=== PATIENT | female | born 1950 | race Caucasian/White ===

== ENCOUNTER 2017-07-11 13:24 | Emergency (ER) | payer MEDICARE, BC ==
[2017-07-11 13:50] VITALS: TEMP 96.6
--- NOTE | 2017-07-11 15:32 | ED.PDOC ---
History of Present Illness - General Chief Complaint: Respiratory Problem Stated Complaint: shortness of breath Time Seen by Provider: 07/11/17 15:31 Source: patient, RN notes reviewed, Vital Signs reviewed Additional Information: Pt reports some recent cough and difficulty breathing. She denies recent fever. - History of Present Illness Timing/Duration: other - over the past 24 hours Severity: mild Possible Cause: occasional episodes Improving Factors: nothing Worsening Factors: nothing Associated Symptoms: cough, shortness of breath Allergies/Adverse Reactions: Allergies Doxycycline Allergy (Verified 07/11/17 13:53) Penicillins Allergy (Verified 07/11/17 13:53) Home Medications: Ambulatory Orders Albuterol Inhaler [Ventolin Hfa Inhaler] 2 puff INH QID PRN #1 inh 07/11/17 predniSONE 40 mg PO DAILY 4 Days #8 tab 07/11/17 Review of Systems - Review of Systems Constitutional: States: no symptoms reported EENTM: States: no symptoms reported Respiratory: States: see HPI, cough, short of breath Cardiology: States: no symptoms reported Gastrointestinal/Abdominal: States: no symptoms reported Genitourinary: States: no symptoms reported Musculoskeletal: States: no symptoms reported Skin: States: no symptoms reported Neurological: States: no symptoms reported Endocrine: States: no symptoms reported Hematologic/Lymphatic: States: no symptoms reported Past Medical History (General) - Patient Medical History Hx Stroke: No Hx of COPD: Yes Hx Congestive Heart Failure: No Hx Diabetes: No Surgical History: cholecystectomy - Vaccination History Hx Influenza Vaccination: Yes Hx Pneumococcal Vaccination: Yes - Social History Hx Tobacco Use: Yes Family Medical History - Family History Mother Family History: Unknown Physical Exam - Physical Exam General Appearance: Alert, Comfortable, No apparent distress, Well Developed, Well Groomed, Well Hydrated, Well Nourished Eye Exam: bilateral normal ENT Exam: normal ENT inspection, hearing grossly normal Neck: non-tender, full range of motion, supple Respiratory: no respiratory distress, no accessory muscle use, rales - diffuse Cardiovascular/Chest: normal peripheral pulses, regular rate, rhythm, no murmur Gastrointestinal/Abdominal: non tender, soft Extremity: normal range of motion, non-tender, normal inspection 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 Lungs with diffuse rales suggestive of COPD exacerbation. No infiltrates seen on x-ray. Will d/c home with Rx for steroid burst and bronchodilator. - Results/Orders Results/Orders: Chest X-Ray Report: CLINICAL HISTORY: shortness of breath COMPARISON: 2008 FINDINGS: Two views of the chest are submitted. The breasts are dense. There is consolidation in each lung. No significant pleural effusion. Heart size is normal. No acute bony abnormality. There is no significant pulmonary vascular engorgement. 07/11/17 07/11/17 07/11/17 13:42 16:25 16:35 Temperature 96.6 F L Pulse Rate [88] 88 79 Respiratory 20 20 20 Rate Blood Pressure 150/90 139/70 [Left Arm] O2 Sat by Pulse 97 96 Oximetry Departure - Departure Clinical Impression: COPD exacerbation Time of Disposition: 16:05 Disposition: Discharge to Home or Self Care Condition: Fair Departure Forms: ED Discharge - Pt. Copy, Patient Portal Self Enrollment Instructions: DI for Chronic Obstructive Pulmonary Disease Referrals: KWAME GAUTHIER [Primary Care Provider] - 1-5 Days Prescriptions: Albuterol Inhaler [Ventolin Hfa Inhaler] 2 puff INH QID PRN #1 inh PRN Reason: Shortness Of Breath/Wheezing predniSONE 40 mg PO DAILY 4 Days #8 tab Home Medications: Ambulatory Orders Albuterol Inhaler [Ventolin Hfa Inhaler] 2 puff INH QID PRN #1 inh 07/11/17 predniSONE 40 mg PO DAILY 4 Days #8 tab 07/11/17 Additional Instructions: Use Albuterol 2 puffs every 3 to 4 hours as needed for shortness of breath. Take full course of Prednisone. Follow-up with Primary Care Provider if symptoms persist in 3 to 5 days, or return to ER sooner if condition worsens.
[2017-07-11] MEDS ORDERED: predniSONE 20 MG TAB PO ONE (15:46)
--- NOTE | 2017-07-11 16:07 | RAD ---
EXAM DESCRIPTION: Chest,2 Views CLINICAL HISTORY: shortness of breath COMPARISON: 04/28/2009 FINDINGS: Two views of the chest are submitted. The breasts are dense. There is consolidation in each lung. No significant pleural effusion. Heart size is normal. No acute bony abnormality. There is no significant pulmonary vascular engorgement. IMPRESSION: Bilateral consolidations. Electronically signed by: Michel Umanzor 07/11/2017 4:06 PM [facility]
[2017-07-11 16:34] VITALS: BP 139/70; O2SAT 96
== END 2017-07-11 16:35 | disposition home or self-care (01) ==
LOC: ER 13:24
DX: J44.1 Chronic obstructive pulmonary disease with (acute) exacerbation (principal); Z88.0 Allergy status to penicillin; Z88.3 Allergy status to other anti-infective agents; Z87.891 Personal history of nicotine dependence
CPT/HCPCS: 71020; J7512

== ENCOUNTER 2018-12-13 05:30 | Day surgery (SDC) | payer MEDICARE, BC ==
[2018-12-13] MEDS ORDERED: MOXIFLOXACIN HCL (OPHTH) 1 DROP DROPS ONE (06:04)
[2018-12-13] MEDS ORDERED: TROP 1%/CYCLOPEN 1%/PHENYL 2% DROPS ONE (06:04)
[2018-12-13] MEDS ORDERED: MIDAZOLAM INJ 2 MG/2 ML VIAL ONE ×3 (08:52→09:07)
[2018-12-13] MEDS: PROPARACAINE 0.5% OPHTH SOL 15 ML BTTL ONE (09:00)
[2018-12-13] MEDS: LIDOCAINE 1% MPF 2 ML VIAL INJ ONE (09:07)
[2018-12-13] MEDS: MOXIFLOXACIN HCL (OPHTH) 1 DROP DROPS LEFT_EYE ONE ×2 (09:11→09:20)
[2018-12-13] MEDS: TOBRAMYCIN-DEXAMETH OPHTH SOL 1 DROP LEFT_EYE ONE ×2 (09:11→09:20)
[2018-12-13] MEDS: DEXAMETHASONE 0.1% OPHTH SOL 1 DROP LEFT_EYE ONE ×2 (09:12→09:20)
[2018-12-13] MEDS: BRIMONIDINE 0.2% OPHTH DROPS LEFT_EYE ONE ×2 (09:12→09:20)
[2018-12-13] MEDS ORDERED: TOBRAMYCIN SULF 0.3 % OPHT SOL 1 DROP OPHTH ONE (09:20)
== END 2018-12-13 09:55 | disposition home or self-care (01) ==
LOC: AMB 05:30
PROVIDERS: ATTEND Ophthalmology
DX: H25.12 Age-related nuclear cataract, left eye (principal); Z79.899 Other long term (current) drug therapy; Z88.0 Allergy status to penicillin; Z88.6 Allergy status to analgesic agent
CPT/HCPCS: 00142; 66984; J2250

== ENCOUNTER 2018-12-27 05:35 | Day surgery (SDC) | payer MEDICARE, BC ==
[2018-12-27] MEDS ORDERED: PROPARACAINE 0.5% OPHTH SOL 15 ML BTTL ONE (05:43)
[2018-12-27] MEDS ORDERED: MOXIFLOXACIN HCL (OPHTH) 1 DROP DROPS ONE (05:43)
[2018-12-27] MEDS ORDERED: TROP 1%/CYCLOPEN 1%/PHENYL 2% DROPS ONE (05:43)
[2018-12-27] MEDS ORDERED: MIDAZOLAM INJ 2 MG/2 ML VIAL ONE (07:13)
[2018-12-27] MEDS ORDERED: LIDOCAINE 1% MPF 2 ML VIAL INJ ONE (07:57)
[2018-12-27] MEDS ORDERED: DEXAMETHASONE 0.1% OPHTH SOL 1 DROP RIGHT_EYE ONE ×2 (08:00→08:10)
[2018-12-27] MEDS ORDERED: TOBRAMYCIN SULF 0.3 % OPHT SOL 1 DROP RIGHT_EYE ONE ×2 (08:00→08:10)
[2018-12-27] MEDS ORDERED: MOXIFLOXACIN HCL (OPHTH) 1 DROP DROPS RIGHT_EYE ONE ×2 (08:00→08:10)
[2018-12-27] MEDS ORDERED: BRIMONIDINE 0.2% OPHTH DROPS RIGHT_EYE ONE ×2 (08:01→08:10)
== END 2018-12-27 08:53 ==
LOC: AMB 05:35
PROVIDERS: ATTEND Ophthalmology
DX: H25.11 Age-related nuclear cataract, right eye (principal); Z88.0 Allergy status to penicillin; Z88.8 Allergy status to other drugs, medicaments and biological substances; Z79.899 Other long term (current) drug therapy
CPT/HCPCS: 00142; 66984; J2250

== ENCOUNTER → 2019-01-20 | Outpatient (CLI) | payer MEDICARE, BC ==
--- NOTE | 2019-01-20 12:43 | CT ---
TECHNIQUE: Volumetric CT scan of the chest, abdomen, and pelvis was performed after the intravenous administration of intravenous contrast. Axial, sagittal and coronal reconstructions were obtained. This exam was performed according to our departmental dose-optimization program, which includes automated exposure control, adjustment of the mA and/or kV according to patient size and/or use of iterative reconstruction technique. COMPARISON: None available. FINDINGS: The thyroid gland is unremarkable. Bilateral breast prostheses. No axillary adenopathy. No pericardial effusion. Coronary artery calcifications noted. No mediastinal adenopathy. Atherosclerotic plaque in the thoracic aorta. The pulmonary arteries are grossly unremarkable. No pneumothorax. No pleural effusion. Peripheral fibrosis and associated traction bronchiectasis. No focal consolidation or suspicious pulmonary nodule. No suspicious hepatic lesion. No biliary dilatation. Cholecystectomy. Dilatation of the common bile duct likely reflects reservoir phenomenon. The portal vein is patent. The spleen, pancreas and adrenal glands are unremarkable. Symmetric renal parenchymal enhancement. No hydronephrosis. No urolithiasis. No urothelial lesion identified although long segments of the ureters are not well opacified. Hysterectomy. No adnexal mass. The bladder is decompressed. Scattered colonic diverticula without focal inflammatory change. No evidence of bowel obstruction. Moderate hiatal hernia with organoaxial volvulus/rotation. The rotated segment of the stomach is not within the hernia sac. No adenopathy. No focal fluid collection. No free air. Moderate diffuse atherosclerotic disease. Normal caliber abdominal aorta. Chronic appearing superior endplate L1 compression deformity. Chronic midthoracic vertebral body compression deformity. No acute or suspicious osseous abnormality. IMPRESSION: 1. Moderate hiatal hernia with organoaxial rotation/volvulus of the the stomach. 2. Pulmonary peripheral fibrosis and associated traction bronchiectasis. 3. Rather diffuse atherosclerotic disease. Electronically signed by: Chele Jackson MD 01/20/2019 12:41 PM CDT
== END ==
LOC: YCFC.O 10:27
PROVIDERS: ATTEND Family Medicine
DX: K44.9 Diaphragmatic hernia without obstruction or gangrene (principal); J84.10 Pulmonary fibrosis, unspecified; J47.9 Bronchiectasis, uncomplicated; I70.90 Unspecified atherosclerosis; R53.83 Other fatigue; Z13.220 Encounter for screening for lipoid disorders

== ENCOUNTER → 2019-01-21 | Outpatient (CLI) | payer MEDICARE, BC ==
[~2019-01-21] MED LIST: ALBUTEROL SULFATE 2.5 MG/3 ML VIAL NEB ONE
== END ==
LOC: ECHO 11:35
PROVIDERS: ATTEND Family Medicine
DX: R10.13 Epigastric pain (principal); J44.9 Chronic obstructive pulmonary disease, unspecified
CPT/HCPCS: 93005; 94060; J7611

== ENCOUNTER 2019-01-28 05:39 | Day surgery (SDC) | payer MEDICARE, BC ==
[2019-01-28] MEDS ORDERED: LIDOCAINE 1% 10 ML VIAL INJ ONE (07:00)
[2019-01-28] MEDS ORDERED: PROPOFOL 200 MG/20 ML VIAL IV ONE (07:00)
[2019-01-28] MEDS ORDERED: LACTATED RINGERS 1,000 ML ONE (08:49)
[2019-01-28 10:21] VITALS: TEMP 98
[2019-01-28] MEDS ORDERED: LISINOPRIL 10 MG TAB ONE (12:30)
[2019-01-28] MEDS ORDERED: cloNIDine HCL 0.1 MG TAB ONE (13:27)
[2019-01-28 14:04] VITALS: BP 154/84; O2SAT 99
--- NOTE | 2019-02-03 08:05 | OP ---
DATE OF PROCEDURE: 01/28/19 PREOPERATIVE DIAGNOSIS: 1. Epigastric pain. 2. History of gastritis. 3. Paraesophageal hernia. 4. History of candidal esophagitis. PROCEDURE: 1. Esophagogastroduodenoscopy. SURGEON: Mehran Ferguson MD. ANESTHESIA: IV sedation. INDICATION: The patient had presented with significant epigastric pain, unrelenting. CAT scan found a paraesophageal hernia with organoaxial rotation. She also had a history of significant colt esophagitis. We had planned for surgery, but a required piece of surgical equipment was not available yet, but will be soon and it was not emergent, so in the interim I recommended EGD to evaluate her esophagitis as her pain was not completely assisted with her small to moderate sized paraesophageal hernia. She understood and wished to proceed. All risks and benefits were discussed. PROCEDURE: The patient was brought to the Operative Suite. IV sedation was given. She was gently placed in lateral position with mouth block placed. EGD scope was passed without difficulty passed the posterior pharynx and into the esophagus. We went down the esophagus to the GE junction and did not immediately notice any significant esophagitis. We entered the stomach and proceeded to the pylorus. I was able to get through to the second portion of the duodenum where the mucosa appeared normal. There was no evidence of ulcers. There was mild gastritis in the distal stomach. There was no evidence of ulcers. Retroflexion revealed the paraesophageal hernia. It was larger at this point than it revealed on the CAT scan, but no evidence of ulcer at the junction. As we carefully withdrew and examining, the Z-line appeared normal with no evidence of Syed's and, again, no evidence of esophagitis. No biopsies of the esophagus were taken, but there were 2 antral biopsies taken to confirm the gastritis and rule out H. pylori which had been negative previously. Overall, unrevealing exam to explain her continued pain, which is more likely now due to the paraesophageal hernia as the rest of the evaluation at this time is negative. She tolerated the procedure, was awakened and taken to Recovery to be discharged. [id number] [facility]
== END 2019-01-28 13:30 | disposition home or self-care (01) ==
LOC: AMB 05:39
PROVIDERS: ATTEND Surgery
DX: R10.13 Epigastric pain (principal); K31.9 Disease of stomach and duodenum, unspecified; K44.9 Diaphragmatic hernia without obstruction or gangrene; K21.9 Gastro-esophageal reflux disease without esophagitis; J44.9 Chronic obstructive pulmonary disease, unspecified; F41.9 Anxiety disorder, unspecified; F32.9 Major depressive disorder, single episode, unspecified; E78.5 Hyperlipidemia, unspecified; Z87.19 Personal history of other diseases of the digestive system; Z90.49 Acquired absence of other specified parts of digestive tract; Z88.0 Allergy status to penicillin; Z90.710 Acquired absence of both cervix and uterus; Z79.899 Other long term (current) drug therapy
CPT/HCPCS: 00731; 43239; 88305; 88342; J3490; J7120

== ENCOUNTER → 2019-02-01 | Outpatient (CLI) | payer MEDICARE, BC | LOC: YCFC.O 12:56 | PROVIDERS: ATTEND Family Medicine | DX: D64.9 Anemia, unspecified (principal) ==

== ENCOUNTER 2019-02-03 05:31 | Inpatient (IN) | payer MEDICARE, BC ==
[2019-02-03] MEDS ORDERED: LACTATED RINGERS 1,000 ML ONE (06:57)
[2019-02-03] MEDS ORDERED: ePHEDrine SULF 50 MG/ML ONE (07:00)
[2019-02-03] MEDS ORDERED: DEXAMETHASONE INJ 10 MG/ML VIAL ONE (07:00)
[2019-02-03] MEDS ORDERED: GLYCOPYRROLATE 0.2 MG/ML VIAL ONE (07:00)
[2019-02-03] MEDS ORDERED: SODIUM CHLORIDE 0.9% 50 ML VIAL ONE (07:00)
[2019-02-03] MEDS ORDERED: KETOROLAC TROMETHAMINE INJ 30 MG/ML VIAL ONE (07:00)
[2019-02-03] MEDS ORDERED: LIDOCAINE 1% 10 ML VIAL INJ ONE (07:00)
[2019-02-03] MEDS ORDERED: PROPOFOL 200 MG/20 ML VIAL IV ONE (07:00)
[2019-02-03] MEDS ORDERED: raNITIdine HCL INJ 25 MG/ML VIAL ONE (07:00)
[2019-02-03] MEDS ORDERED: CLINDAMYCIN IV 900MG 50 ML IVPB ONE (07:06)
[2019-02-03] MEDS ORDERED: HYDROmorphone HCL INJ 2 MG/ML VIAL ONE ×2 (09:06→11:33)
[2019-02-03] MEDS ORDERED: MIDAZOLAM INJ 5 MG/5 ML VIAL ONE (09:06)
[2019-02-03] MEDS ORDERED: ROCURONIUM BROMIDE 10 MG/ML VIAL ONE (09:07)
[2019-02-03] MEDS ORDERED: KETAMINE HCL 100 MG/ML VIAL ONE (09:08)
[2019-02-03] MEDS ORDERED: ELECTROLYTE-A 1,000 ML IVS ONE (10:54)
[2019-02-03] MEDS ORDERED: SUGAMMADEX SODIUM 200 MG/2 ML VIAL IV ONE (10:55)
[2019-02-03] MEDS ORDERED: HYDROmorphone HCL INJ 2 MG/ML VIAL IV ONE ×3 (11:40→12:07)
[2019-02-03] MEDS ORDERED: PROMETHAZINE HCL INJ 25 MG/ML VIAL ONE (11:41)
[2019-02-03] MEDS ORDERED: PROMETHAZINE HCL INJ 25 MG/ML VIAL IVPB ONE (11:42)
[2019-02-03] MEDS ORDERED: fentaNYL CITRATE INJ 50 MCG/ML AMP IV ONE ×3 (11:45→12:17)
[2019-02-03] MEDS ORDERED: fentaNYL CITRATE INJ 50 MCG/ML AMP ONE (11:46)
[2019-02-03] MEDS ORDERED: HYDROmorphone PCA 0.2 MG/ML 1 BAG BAG IVPB ONE ×2 (12:15→12:27)
[2019-02-03] MEDS ORDERED: HYDROmorphone PCA 0.2 MG/ML 1 BAG BAG IVPB SCH (12:30)
[2019-02-03] MEDS ORDERED: PANTOPRAZOLE SODIUM IV 40 MG VIAL IV SCH (12:30)
[2019-02-03] MEDS: SUCRALFATE 1 GM TAB PO SCH ×3 (13:24→20:16)
--- NOTE | 2019-02-03 13:33 | OP ---
DATE OF PROCEDURE: 02/03/19 PREOPERATIVE DIAGNOSIS: 1. Paraesophageal hernia. POSTOPERATIVE DIAGNOSIS: 1. Paraesophageal hernia. PROCEDURE: 1. Repair of paraesophageal hernia. 2. Placement of mesh. SURGEON: Mehran Ferguson MD SUPERVISOR SHEET MANUFACTURING: Vishnu Biggs MD ANESTHESIA: General. FINDINGS: Unexpectedly, the patient had evidence of a prior gastric wrap procedure, likely a toupee. She had scars from her previous midline surgery and gastrotomy tube. She had a defect lateral to the esophagogastric junction that required approximately 5 cm repair. A 52 bougie was used. COMPLICATIONS: None. ESTIMATED BLOOD LOSS: Less than 100. CONDITION: Stable. PLAN: Admit. INDICATIONS: This is a woman I have been seeing. She has had a history of reflux, a history of colt esophagitis and history of an open cholecystectomy and pelvic procedure. She had not given a history of any kind of stomach wrap or twist, etc., but had had a G-tube that was placed during a protracted illness in the past. A CAT scan had confirmed a paraesophageal hernia with organoaxial rotation of the stomach. The initial operation was delayed, so an EGD was performed to rule out recurrence of colt esophagitis and there was no evidence of that, nor was there evidence of a severe Syed's, but the paraesophageal hernia was present with no stricture. She was then consented for repair of the paraesophageal hernia. She continued to have persistent deep type epigastric pain. PROCEDURE: She was brought to the Operative Suite in supine position. General anesthesia was induced. She was prepped and draped in sterile fashion. Upper midline incision was used to enter the abdominal cavity without difficulty. There were some adhesions anteriorly from previous surgery. These were taken down with cautery as well as a PEG tube she had had. This was taken down. There was no definite hole, but the area was reinforced with interrupted Silk sutures to ensure there was no damage where the PEG had been. We then began our dissection. The greater curvature and short gastric vessels were taken down with the electronic seal device without difficulty. There was one small pole on the splenic capsule near the inferomedial pole. At this point, we just packed it. There was not any active bleeding. We then went to the lesser curvature and began taking that down. That is when we noticed the sutures that appeared to be abraded Nylon permanent sutures which then led me to believe she had already had a previous wrap, which was unknown to us. It ultimately looked like a toupee wrap. It was still intraabdominal and had not slipped up into the chest. We preferred not to re-do here, but this is what we are facing at this point. We continued our dissection and noticed the defect lateral to the esophagus and the gastric junction which is where the stomach was indeed herniating. The stomach was pulled down. We continued our posterior dissection. There were some significant adhesions here, but we were able to get posterior to the stomach to ensure that the entire fundus was out of the chest and indeed it was. Medially, we could not identify the yg. It was very scarred in this area and I did not want to take that up. She likely had a previous yg repair when they did the wrap. It appeared to be a toupee as there were two rows of interrupted Nylon on either side and, again, the distal esophagus about 3 cm were still in the abdomen at this time. Our option at this time was just to close that hole and we did with interrupted 2-0 Prolene. We closed this defect and in all was about a 5 cm repair. As you can imagine, the initial defect was sizable. A 52 bougie was placed while we repaired this to make sure it was not too tight. When it was acceptable, we put one finger in there and we knew we had an adequate closure. There was no significant bleeding. We kept an eye on the spleen throughout and it was not bleeding significantly. We then chose the silicone barrier mesh. It was fashioned to go around like a pants leg from superolateral on the left. It went around and we secured it anteriorly and then posteriorly, but not a complete wrap, however, but we did secure the one leg to the left lateral and posterior to the stomach near the GE junction and then of course over the suture line it was secured. This was with interrupted Silk sutures. At this point, everything looked good. I think we had done what we could to help her considering what we encountered. We took one last look at the spleen and placed a couple of pieces of Seprafilm there and some light pressure. At the time of closure, there was no discernible oozing. Lap and instrument counts were correct. The midline was closed with a running 0 PDS suture. The wound was irrigated and the skin was closed with carlotta. A dressing was applied. She tolerated the procedure. She was awakened and taken to Recovery to be admitted. #[id number] [facility]
[2019-02-03] MEDS: KCL 20MEQ/D5 1/2NS 1,000 ML IVS PRN (16:41)
[2019-02-03] MEDS ORDERED: LISINOPRIL 10 MG TAB ONE (19:00)
[2019-02-03] MEDS: LISINOPRIL 10 MG PO SCH (20:16)
[2019-02-03] MEDS: LEVALBUTEROL NEBS 1.25 MG/3 ML VIAL NEB SCH (20:40)
--- NOTE | 2019-02-03 21:49 | CONS ---
DATE OF CONSULTATION: 02/03/19 SUPERVISING PHYSICIAN: Mehran Arrington M.D. REASON FOR CONSULTATION: Status post esophageal hernia repair. HISTORY OF PRESENT ILLNESS: This is a 68 year-old female patient who was admitted to the hospital today for an esophageal hernia repair performed by Dr. Mehran Ferguson, general surgeon. About 2 years ago the patient was told she had an esophageal hernia but it was too small to be repaired at that time. Over the last few years the pain has increased as well as the frequency of her pain. The pain has also started to radiate up through to her back and then up toward her neck. She saw Dr. Sesay at [facility] and he referred her to Dr. Ferguson. Today, she had an esophageal hernia repair. There were no problems intraoperatively and I am seeing the patient postoperatively on the Medical/Surgical floor. PAST MEDICAL HISTORY: 1. Hypertension. 2. History of stroke with resulting acute respiratory failure and ARDS. 3. Gastroesophageal reflux disease. 4. Chronic obstructive pulmonary disease with a longstanding history of smoking. She quit in June of 2018. PAST SURGICAL HISTORY: 1. Cholecystectomy. 2. Hysterectomy. 3. Rotator cuff repair. 4. Bilateral tubal ligation. OUTPATIENT MEDICATIONS: 1. Acetaminophen. 2. Pantoprazole. 3. Lisinopril. 4. Sertraline. 5. Sucralfate. 6. Trazodone. ALLERGIES: NO KNOWN DRUG ALLERGIES. SOCIAL HISTORY: She lives in [place]. She is . She has 2 daughters. 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 She smoked for over 30 years approximately 1 pack of cigarettes daily. She quit in June of 2018. There is no history of ETOH or illicit drug use. REVIEW OF SYSTEMS: Negative except as per History of Present Illness. PHYSICAL EXAMINATION: VITAL SIGNS: Temperature 97.5, heart rate 65, blood pressure 177/91, respiratory rate 16, O2 sat 94% on 3 liters nasal cannula. GENERAL: This is a 68 year-old female patient who is lying in her hospital bed. She is in no acute distress. HEENT: Normocephalic and atraumatic. Pupils are equal and reactive. Oropharynx is clear. NECK: Supple without mass. RESPIRATORY: Diminished at the bases but otherwise clear to auscultation bilaterally. CHEST: There is equal rise and fall of the chest with inspiration and expiration. HEART: Regular rate and rhythm. GASTROINTESTINAL: Abdomen is soft. It is diffusely tender. She has a midline abdominal dressing that is dry and intact. Bowel sounds are hypoactive. SKIN: Warm and dry. EXTREMITIES: No clubbing, cyanosis or edema. NEUROLOGIC: She is awake, alert and oriented times three. Cranial nerves II- XII are grossly intact. LABORATORY: There are no present labs or films to report at this time, but otherwise her labs have been reviewed via the EMR. IMPRESSION: 1. Esophageal hernia status post repair performed by Dr. Mehran Ferguson, general surgeon. Postoperative day #0. 2. Gastroesophageal reflux disease. 3. Hypertension on medications. 4. Chronic obstructive pulmonary disease with a history of ARDS. 5. Tobacco abuse with a 30 pack year smoking history. She stopped smoking in 06/2018. 6. 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 PLAN: We will continue present supportive care. I will follow the patient with Dr. Ferguson. Surgical issues will be per Dr. Ferguson. I have restarted her antihypertensive as her other home medications were restarted. I have also put her on a PPI for ulcer prophylaxis. She is on Lovenox for DVT prophylaxis. I have also started her on Xopenex p.r.n. and scheduled treatments. She will have aggressive pulmonary hygiene. She will have incentive spirometry as well as continuous pulse oximetry. Labs have been ordered for in the morning. Will continue to monitor closely and follow as needed. [facility][id number] [facility]
[2019-02-04] MEDS: traZODone HCL 100 MG TAB PO SCH ×2 (00:14→21:26)
[2019-02-04] MEDS: KCL 20MEQ/D5 1/2NS 1,000 ML IVS PRN ×4 (01:53→21:26)
[2019-02-04] MEDS: LEVALBUTEROL NEBS 1.25 MG/3 ML VIAL NEB PRN (03:15)
[2019-02-04] MEDS: PANTOPRAZOLE SODIUM TAB 40 MG PO SCH (06:29)
[2019-02-04] MEDS: SUCRALFATE 1 GM TAB PO SCH ×4 (06:29→21:26)
[2019-02-04] MEDS ORDERED: PANTOPRAZOLE SODIUM IV 40 MG VIAL IV SCH ×2 (06:30)
[2019-02-04] MEDS ORDERED: LISINOPRIL 10 MG TAB ONE (07:45)
[2019-02-04] MEDS: SERTRALINE HCL 50 MG TAB PO SCH (08:04)
[2019-02-04] MEDS: ENOXAPARIN SODIUM 40 MG/0.4 ML SYG SUBCU SCH (08:05)
[2019-02-04] MEDS: LISINOPRIL 10 MG PO SCH (08:05)
[2019-02-04] MEDS: LEVALBUTEROL NEBS 1.25 MG/3 ML VIAL NEB SCH ×4 (08:53→19:40)
[2019-02-04] MEDS ORDERED: traZODone HCL 100 MG TAB PO SCH (09:00)
[2019-02-04] MEDS ORDERED: MAGNESIUM SULFATE PREMIX 2GM 2 GM in PREMIX BAG 1 BAG IVPB ONE (10:02)
[2019-02-04] MEDS ORDERED: MAGNESIUM SULFATE PREMIX 2GM 50 ML IVPB ONE (11:03)
[2019-02-04] MEDS: HYDROcodone 10MG/APAP 325MG 1 EA TAB PO PRN (17:38)
[2019-02-04] MEDS: ONDANSETRON INJ 4 MG/2 ML VIAL IV PRN (19:25)
[2019-02-04] MEDS: LISINOPRIL 10 MG TAB PO SCH (21:26)
--- NOTE | 2019-02-04 23:12 | PN ---
DATE: 02/04/19 SUPERVISING PHYSICIAN: Mehran Arrington M.D. SUBJECTIVE: The patient is lying in bed. She is resting quietly. She awakens easily and feels like her pain medications have been controlling her symptoms. She did have chest pain this morning but she felt like it was anxiety. Otherwise denies shortness of breath, nausea or vomiting. OBJECTIVE: VITAL SIGNS: Temperature 98.1, heart rate 79, blood pressure 180/74, respiratory rate 18, O2 sat 96% on 3 liters nasal cannula. RESPIRATORY: Essentially clear to auscultation bilaterally. She is diminished at the bases. CARDIAC: Regular rate and rhythm. GASTROINTESTINAL: She has a midline abdominal dressing that is dry and intact. It is diffusely tender. Bowel sounds are positive. NEUROLOGIC: She is awake, alert and oriented times three. LABORATORY: WBCs 13,800 with hemoglobin 10.3, hematocrit 32. She has a left shift on her differential. Sodium 133, potassium 3.6, chloride 100. Cardiac enzymes were negative this morning except for her creatinine kinase and it was 832. All other labs and films have been reviewed via the EMR. ASSESSMENT: 1. Esophageal hernia status post repair performed by Dr. Mehran Ferguson, general surgeon. Postoperative day #1. 2. Gastroesophageal reflux disease. 3. Hypertension on medications. 4. Chronic obstructive pulmonary disease with a history of ARDS without signs or symptoms of exacerbation. 5. Tobacco abuse with a 30 pack year smoking history. She stopped smoking in 06/2018. 6. 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 7. Anxiety. PLAN: We will continue present supportive care. I will defer operative issues per Dr. Ferguson. We will also follow the patient along with him. I have discontinued her MATE RELIEF pump and put her on Hydrocodone. I have encouraged good pulmonary hygiene. Will continue to monitor closely and follow as needed. #[id number] [facility]
[2019-02-05] MEDS: HYDROcodone 10MG/APAP 325MG 1 EA TAB PO PRN ×4 (01:07→19:22)
[2019-02-05] MEDS: ONDANSETRON INJ 4 MG/2 ML VIAL IV PRN ×3 (01:28→13:43)
[2019-02-05] MEDS: PANTOPRAZOLE SODIUM TAB 40 MG PO SCH (06:12)
[2019-02-05] MEDS: KCL 20MEQ/D5 1/2NS 1,000 ML IVS PRN (06:12)
[2019-02-05] MEDS: SUCRALFATE 1 GM TAB PO SCH ×4 (06:45→20:23)
[2019-02-05] MEDS: LEVALBUTEROL NEBS 1.25 MG/3 ML VIAL NEB SCH ×4 (08:30→20:37)
[2019-02-05] MEDS ORDERED: KCL 20MEQ/D5NS 1,000 ML IVS PRN (08:54)
[2019-02-05] MEDS: ENOXAPARIN SODIUM 40 MG/0.4 ML SYG SUBCU SCH (10:46)
[2019-02-05] MEDS: SERTRALINE HCL 50 MG TAB PO SCH (10:47)
[2019-02-05] MEDS: LISINOPRIL 10 MG TAB PO SCH ×2 (10:47→20:23)
[2019-02-05] MEDS: LEVALBUTEROL NEBS 1.25 MG/3 ML VIAL NEB PRN (11:25)
[2019-02-05] MEDS: guaiFENesin 100 MG/5 ML 10 ML UD PO SCH ×3 (12:57→20:32)
[2019-02-05] MEDS ORDERED: ALPRAZolam 0.25 MG TAB ONE (13:00)
[2019-02-05] MEDS: ALPRAZolam 0.25 MG TAB PO PRN ×2 (13:03→20:22)
[2019-02-05] MEDS ORDERED: FUROSEMIDE INJ 20 MG/2 ML VIAL IV ONE (14:59)
[2019-02-05] MEDS ORDERED: cloNIDine HCL 0.1 MG TAB PO ONE (15:00)
[2019-02-05] MEDS ORDERED: SODIUM CHLORIDE 0.9% (FLUSH) 10 ML SYG IV PRN (15:08)
--- NOTE | 2019-02-05 15:36 | PCM.PROG ---
Objective - Exam Vitals and I&O: Vital Signs Temp 98.4 F 02/05/19 13:47 Pulse 89 02/05/19 14:00 Resp 22 02/05/19 14:00 BP 179/92 02/05/19 15:26 Pulse Ox 95 02/05/19 14:00 Intake & Output 02/04/19 02/05/19 02/05/19 18:59 06:59 18:59 Intake Total 1630 1707 132 Output Total 1500 Balance 130 1707 132 Intake: IV 1030 1017 132 D5 1/2NS W/ KCL 20 meq/ 1000 1017 Liter 1,000 ML @ 110 mls/ hr IVS .QD PRN Rx#: [id number] D5 NS W/ KCL 20 meq/Liter 132 1,000 ML @ 100 mls/hr IVS .QD PRN Rx#:[id number] Protonix IV 40 mg IV 30 DAILY@0630 ARTHUR Rx#: [id number] Oral 600 690 Output: Urine 1500 Other: # Voids 4 2 1 General: Alert, Oriented x3, Cooperative, No acute distress HEENT: PERRLA Lungs: Other - nurse noted crackles, clear now on O2 Cardiovascular: Regular rate Abdomen: Soft, Other - distended but soft. Pt with belching no flatus yet Extremities: No cyanosis Neurological: Normal speech - Results Results: 02/05/19 12:57 ALPRAZolam [Xanax] 0.25 mg PO Q6H PRN 02/05/19 13:00 guaiFENesin 100 MG/5 ML [Robitussin] 15 ml PO QID 02/05/19 15:08 Sodium Chloride 0.9% (Flush) [Saline Flush Syringe] 3 ml IV PRN PRN 02/05/19 21:00 Sodium Chloride 0.9% (Flush) [Saline Flush Syringe] 3 ml IV BID 02/06/19 05:00 COMPLETE METABOLIC PROFILE Routine MAGNESIUM Routine CBC (AUTOMATED) W/AUTO DIFF Routine Laboratory Results WBC 13.5 K/mm3 (4.8-10.8) H 02/05/19 05:36 RBC 3.79 M/mm3 (4.20-5.40) L 02/05/19 05:36 Hgb 10.2 gm/dL (12.0-16.0) L 02/05/19 05:36 Hct 30.4 % (36.0-47.0) L 02/05/19 05:36 MCV 80.3 fl (81.0-99.0) L 02/05/19 05:36 MCH 27.0 pg (27.0-31.0) 02/05/19 05:36 MCHC 33.6 g/dL (33.0-37.0) 02/05/19 05:36 RDW 17.7 % (11.5-14.5) H 02/05/19 05:36 Plt Count 270 K/mm3 (130-400) 02/05/19 05:36 MPV 7.0 fl (7.40-10.4) L 02/05/19 05:36 Absolute Neuts (auto) 11.80 K/uL (1.8-6.8) H 02/05/19 05:36 Absolute Lymphs (auto) 0.80 K/uL (1.0-3.4) L 02/05/19 05:36 Absolute Monos (auto) 0.90 K/uL (0.2-0.8) H 02/05/19 05:36 Absolute Eos (auto) 0.00 K/uL (0.0-0.4) 02/05/19 05:36 Absolute Basos (auto) 0.00 K/uL (0.0-0.1) 02/05/19 05:36 Neutrophils % 87.6 % (42.0-78.0) H 02/05/19 05:36 Lymphocytes % 5.6 % (20.0-50.0) L 02/05/19 05:36 Monocytes % 6.5 % (2.0-9.0) 02/05/19 05:36 Eosinophils % 0.1 % (1.0-5.0) L 02/05/19 05:36 Basophils % 0.2 % (0.0-2.0) 02/05/19 05:36 Sodium 125 mmol/L (135-145) L 02/05/19 05:36 Potassium 3.4 mmol/L (3.6-5.0) L 02/05/19 05:36 Chloride 91 mmol/L (101-111) L 02/05/19 05:36 Carbon Dioxide 23 mmol/L (21-31) 02/05/19 05:36 Anion Gap 14.4 (12-18) 02/05/19 05:36 BUN 7 mg/dL (7-18) D 02/05/19 05:36 Creatinine 0.56 mg/dL (0.6-1.3) L D 02/05/19 05:36 BUN/Creatinine Ratio 12.5 (10-20) 02/05/19 05:36 Random Glucose 140 mg/dL (70-105) H 02/05/19 05:36 Serum Osmolality 251.8 mOsm/L (275-295) L* 02/05/19 05:36 Calcium 8.7 mg/dL (8.4-10.2) 02/05/19 05:36 Magnesium 1.6 mg/dL (1.8-2.5) L 02/05/19 05:36 Total Bilirubin 0.8 mg/dL (0.2-1.0) 02/05/19 05:36 AST 34 IU/L (10-42) 02/05/19 05:36 ALT 29 IU/L (10-60) 02/05/19 05:36 Alkaline Phosphatase 65 IU/L (42-121) 02/05/19 05:36 Creatine Kinase 832 IU/L (26-140) H* 02/04/19 07:30 CK-MB (CK-2) 4.2 ng/mL (0.0-4.4) 02/04/19 07:30 CK-MB (CK-2) % 0.50 % (0.0-4.3) 02/04/19 07:30 Troponin I 0.03 ng/mL (0.01-0.05) 02/04/19 07:30 Serum Total Protein 7.1 gm/dL (6.4-8.2) 02/05/19 05:36 Albumin 3.5 g/dl (3.2-5.5) 02/05/19 05:36 Globulin 3.6 gm/dL (2.3-3.5) H 02/05/19 05:36 Albumin/Globulin Ratio 1.0 (1.1-1.9) L 02/05/19 05:36 Assessment/Plan - Assessment Assessment: post paraesophageal hernia stable. WBC13 will watch. Hyponatremia. IV DCed tolerating full liquids. - Plan for Current Visit Plan: Continue to encourage ambulation and wean O2 as tolerated. AM VIRA you BMP
[2019-02-05] MEDS: traZODone HCL 100 MG TAB PO SCH (20:23)
[2019-02-05] MEDS: SODIUM CHLORIDE 0.9% (FLUSH) 10 ML SYG IV SCH (20:24)
[2019-02-06] MEDS: HYDROcodone 10MG/APAP 325MG 1 EA TAB PO PRN ×4 (04:23→22:55)
[2019-02-06] MEDS: ALPRAZolam 0.25 MG TAB PO PRN ×4 (04:24→20:43)
[2019-02-06] MEDS: SUCRALFATE 1 GM TAB PO SCH ×4 (06:37→20:44)
[2019-02-06] MEDS: PANTOPRAZOLE SODIUM TAB 40 MG PO SCH (06:37)
[2019-02-06] MEDS: LEVALBUTEROL NEBS 1.25 MG/3 ML VIAL NEB SCH ×4 (08:05→21:04)
[2019-02-06] MEDS: LISINOPRIL 10 MG TAB PO SCH ×2 (09:02→20:44)
[2019-02-06] MEDS: guaiFENesin 100 MG/5 ML 10 ML UD PO SCH ×4 (09:02→20:44)
[2019-02-06] MEDS: SERTRALINE HCL 50 MG TAB PO SCH (09:02)
[2019-02-06] MEDS: ENOXAPARIN SODIUM 40 MG/0.4 ML SYG SUBCU SCH (09:02)
[2019-02-06] MEDS: SODIUM CHLORIDE 0.9% (FLUSH) 10 ML SYG IV SCH ×2 (09:19→20:44)
[2019-02-06] MEDS ORDERED: POTASSIUM CHLORIDE ELIXIR 20 MEQ/15 ML UD PO ONE (12:07)
--- NOTE | 2019-02-06 13:05 | PCM.PROG ---
PCM Subjective - Review of Systems Events since last encounter: feels better. co more cough. no flatus yet. tolerating liquids Gastrointestinal: States: Other - soft. mild tenderness. no rebound Objective - Exam Vitals and I&O: Vital Signs Temp 97.4 F L 02/06/19 10:00 Pulse 91 H 02/06/19 12:37 Resp 20 02/06/19 12:37 BP 135/75 02/06/19 10:00 Pulse Ox 94 L 02/06/19 12:37 Intake & Output 02/05/19 02/06/19 02/06/19 18:59 06:59 18:59 Intake Total 250 550 Balance 250 550 Intake: IV 132 D5 NS W/ KCL 20 meq/Liter 132 1,000 ML @ 100 mls/hr IVS .QD PRN Rx#:[id number] Oral 118 550 Other: # Voids 1 1 - Results Results: 02/06/19 09:00 IMT/PEP/Flutter Valve TID 02/06/19 12:06 ALPRAZolam [Xanax] 0.25 mg PO Q4H PRN 02/06/19 15:00 IMT/PEP/Flutter Valve TID 02/06/19 21:00 IMT/PEP/Flutter Valve TID 02/07/19 09:00 IMT/PEP/Flutter Valve TID 02/07/19 15:00 IMT/PEP/Flutter Valve TID 02/07/19 21:00 IMT/PEP/Flutter Valve TID 02/08/19 09:00 IMT/PEP/Flutter Valve TID 02/08/19 15:00 IMT/PEP/Flutter Valve TID 02/08/19 21:00 IMT/PEP/Flutter Valve TID 02/09/19 09:00 IMT/PEP/Flutter Valve TID 02/09/19 15:00 IMT/PEP/Flutter Valve TID 02/09/19 21:00 IMT/PEP/Flutter Valve TID 02/10/19 09:00 IMT/PEP/Flutter Valve TID 02/10/19 15:00 IMT/PEP/Flutter Valve TID 02/10/19 21:00 IMT/PEP/Flutter Valve TID 02/11/19 09:00 IMT/PEP/Flutter Valve TID 02/11/19 15:00 IMT/PEP/Flutter Valve TID 02/11/19 21:00 IMT/PEP/Flutter Valve TID 02/12/19 09:00 IMT/PEP/Flutter Valve TID 02/12/19 15:00 IMT/PEP/Flutter Valve TID 02/12/19 21:00 IMT/PEP/Flutter Valve TID 02/13/19 09:00 IMT/PEP/Flutter Valve TID 02/13/19 15:00 IMT/PEP/Flutter Valve TID 02/13/19 21:00 IMT/PEP/Flutter Valve TID 02/14/19 09:00 IMT/PEP/Flutter Valve TID 02/14/19 15:00 IMT/PEP/Flutter Valve TID 02/14/19 21:00 IMT/PEP/Flutter Valve TID 02/15/19 09:00 IMT/PEP/Flutter Valve TID 02/15/19 15:00 IMT/PEP/Flutter Valve TID 02/15/19 21:00 IMT/PEP/Flutter Valve TID 02/16/19 09:00 IMT/PEP/Flutter Valve TID 02/16/19 15:00 IMT/PEP/Flutter Valve TID 02/16/19 21:00 IMT/PEP/Flutter Valve TID Laboratory Results WBC 12.2 K/mm3 (4.8-10.8) H 02/06/19 06:03 RBC 3.65 M/mm3 (4.20-5.40) L 02/06/19 06:03 Hgb 9.9 gm/dL (12.0-16.0) L 02/06/19 06:03 Hct 29.4 % (36.0-47.0) L 02/06/19 06:03 MCV 80.5 fl (81.0-99.0) L 02/06/19 06:03 MCH 27.1 pg (27.0-31.0) 02/06/19 06:03 MCHC 33.7 g/dL (33.0-37.0) 02/06/19 06:03 RDW 17.8 % (11.5-14.5) H 02/06/19 06:03 Plt Count 334 K/mm3 (130-400) 02/06/19 06:03 MPV 6.7 fl (7.40-10.4) L 02/06/19 06:03 Absolute Neuts (auto) 10.30 K/uL (1.8-6.8) H 02/06/19 06:03 Absolute Lymphs (auto) 0.80 K/uL (1.0-3.4) L 02/06/19 06:03 Absolute Monos (auto) 1.00 K/uL (0.2-0.8) H 02/06/19 06:03 Absolute Eos (auto) 0.00 K/uL (0.0-0.4) 02/06/19 06:03 Absolute Basos (auto) 0.10 K/uL (0.0-0.1) 02/06/19 06:03 Neutrophils % 84.5 % (42.0-78.0) H 02/06/19 06:03 Lymphocytes % 6.6 % (20.0-50.0) L 02/06/19 06:03 Monocytes % 8.1 % (2.0-9.0) 02/06/19 06:03 Eosinophils % 0.4 % (1.0-5.0) L 02/06/19 06:03 Basophils % 0.4 % (0.0-2.0) 02/06/19 06:03 Sodium 126 mmol/L (135-145) L 02/06/19 06:03 Potassium 3.5 mmol/L (3.6-5.0) L 02/06/19 06:03 Chloride 90 mmol/L (101-111) L 02/06/19 06:03 Carbon Dioxide 26 mmol/L (21-31) 02/06/19 06:03 Anion Gap 13.5 (12-18) 02/06/19 06:03 BUN 12 mg/dL (7-18) 02/06/19 06:03 Creatinine 0.84 mg/dL (0.6-1.3) 02/06/19 06:03 BUN/Creatinine Ratio 14.3 (10-20) 02/06/19 06:03 Random Glucose 133 mg/dL (70-105) H 02/06/19 06:03 Serum Osmolality 255.0 mOsm/L (275-295) L 02/06/19 06:03 Calcium 9.0 mg/dL (8.4-10.2) 02/06/19 06:03 Magnesium 1.6 mg/dL (1.8-2.5) L 02/06/19 06:03 Total Bilirubin 1.1 mg/dL (0.2-1.0) H D 02/06/19 06:03 AST 21 IU/L (10-42) 02/06/19 06:03 ALT 23 IU/L (10-60) 02/06/19 06:03 Alkaline Phosphatase 61 IU/L (42-121) 02/06/19 06:03 Creatine Kinase 832 IU/L (26-140) H* 02/04/19 07:30 CK-MB (CK-2) 4.2 ng/mL (0.0-4.4) 02/04/19 07:30 CK-MB (CK-2) % 0.50 % (0.0-4.3) 02/04/19 07:30 Troponin I 0.03 ng/mL (0.01-0.05) 02/04/19 07:30 Serum Total Protein 6.8 gm/dL (6.4-8.2) 02/06/19 06:03 Albumin 3.3 g/dl (3.2-5.5) 02/06/19 06:03 Globulin 3.5 gm/dL (2.3-3.5) 02/06/19 06:03 Albumin/Globulin Ratio 0.9 (1.1-1.9) L 02/06/19 06:03 Assessment/Plan - Assessment Assessment: stable but increased co cough, WBC better. - Plan for Current Visit Plan: Order chest xray. Continue liquids.
[2019-02-06] MEDS: LEVALBUTEROL NEBS 1.25 MG/3 ML VIAL NEB PRN (14:17)
[2019-02-06] MEDS: ONDANSETRON INJ 4 MG/2 ML VIAL IV PRN ×2 (15:17→20:41)
--- NOTE | 2019-02-06 15:24 | RAD ---
EXAM DESCRIPTION: Chest, x-ray 2 Views CLINICAL HISTORY: ho ards cough COMPARISON: July 11, 2017 FINDINGS: Patient is rotated. Straightening of the pulmonary vessels could be secondary to underlying emphysematous changes. Reticular opacities at the perihilar level could be secondary to bronchitis changes of unknown age. Increased opacity at the right lower lung and blunted costophrenic angle could represent a combination of pleural fluid and atelectasis. Increased opacity of the left lower lung may represent atelectasis. Underlying mild pulmonary edema not excluded. IMPRESSION: Increased opacity at the right lower lung and blunted costophrenic angle could represent a combination of pleural fluid and atelectasis. Increased opacity of the left lower lung may represent atelectasis. Underlying mild pulmonary edema not excluded. Recommend follow-up. Electronically signed by: Dominik Garcia MD 02/06/2019 3:22 PM CDT
[2019-02-06] MEDS: traZODone HCL 100 MG TAB PO SCH (20:44)
--- NOTE | 2019-02-06 21:07 | PN ---
DATE: 02/05/19 SUPERVISING PHYSICIAN: Mehran Arrington M.D. SUBJECTIVE: The patient is sitting up in bed. Her is at the bedside. She complains mostly of anxiety and restlessness. She does have some pain in her abdominal area but it improves daily. She has a mild nonproductive cough but no shortness of breath, complains of pain nausea or vomiting. OBJECTIVE: VITAL SIGNS: Temperature 98.4, heart rate 99, blood pressure 182/105, respiratory rate 22, O2 sat 90% on 4 liters nasal cannula. RESPIRATORY: Diminished breath sounds throughout with a few scattered rhonchi through the upper lung liao. CARDIAC: Regular rate and rhythm. GASTROINTESTINAL: Abdomen is soft, nondistended. It is diffusely tender. She has a midline abdominal incision with a dressing on it. It is dry and intact. Bowel sounds are positive. NEUROLOGIC: She is awake, alert and oriented times three. LABORATORY: WBCs are still elevation but slightly improved to 13,500, hemoglobin 10.2, hematocrit 30.4. She has a left shift on her differential. Sodium 125, potassium 3.4, chloride 91, carbon dioxide 23, serum osmolality 251.8, magnesium 1.6. All other labs and films have been reviewed via the EMR. ASSESSMENT: 1. Esophageal hernia status post repair performed by Dr. Mehran Ferguson, general surgeon. Postoperative day #2. 2. Gastroesophageal reflux disease. 3. Hypertension on medications. 4. Chronic obstructive pulmonary disease with a history of ARDS without signs or symptoms of exacerbation. 5. Tobacco abuse with a 30 pack year smoking history. She stopped smoking in 06/2018. 6. 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 7. Anxiety. PLAN: We will continue present supportive care. Will defer operative issues per Dr. Ferguson. Will also follow the patient along with him. I have ordered lab for tomorrow and I have ordered some Mucinex for her cough. I have changed her IV fluids based on her electrolytes. She has gotten magnesium replacement as well as potassium replacement. I have also given her some Xanax. She is quite nervous and anxious, and even though she said she stopped smoking in June of 2018, family members said that they felt like she had continued to smoke. I did offer the patient a nicotine patch earlier. She refused it and again said she quit smoking last June. Her did say that she was anxious a lot of the times, so hopefully the Xanax will help bring her blood pressure down. If not, we may need to increase her antihypertensives tomorrow. I have encouraged good pulmonary hygiene. Will continue to follow her closely and treat as needed. #[id number] MTDD
[2019-02-06] MEDS ORDERED: MAGNESIUM SULFATE PREMIX 2GM 2 GM in PREMIX BAG 1 BAG IVPB ONE (21:51)
[2019-02-06] MEDS ORDERED: AZITHROMYCIN IV 500 MG VIAL IVPB ONE (22:32)
[2019-02-06] MEDS ORDERED: MAGNESIUM SULFATE PREMIX 2GM 50 ML IVPB ONE (22:32)
[2019-02-06] MEDS ORDERED: SODIUM CHL 0.9% 50ML MIN-BAG+ 50 ML IVPB ONE (22:32)
[2019-02-06] MEDS ORDERED: SODIUM CHLORIDE 0.9% 250ML 250 ML ONE (22:32)
[2019-02-06] MEDS ORDERED: cefTRIAXone SODIUM 1 GM VIAL ONE (22:32)
[2019-02-06] MEDS ORDERED: SODIUM CHLORIDE 0.9% 250ML 250 ML IVS PRN (23:05)
[2019-02-07] MEDS: cefTRIAXone SODIUM 1 GM in SODIUM CHL 0.9% 50ML MIN-BAG+ 50 ML IVPB SCH ×2 (00:02→22:23)
[2019-02-07] MEDS: AZITHROMYCIN IV 500 MG in SODIUM CHLORIDE 0.9% 250ML 250 ML IVPB SCH ×2 (00:16→23:08)
[2019-02-07] MEDS: ALPRAZolam 0.25 MG TAB PO PRN ×4 (02:48→20:35)
[2019-02-07] MEDS: HYDROcodone 10MG/APAP 325MG 1 EA TAB PO PRN ×4 (04:57→22:23)
[2019-02-07] MEDS: PANTOPRAZOLE SODIUM TAB 40 MG PO SCH (06:24)
[2019-02-07] MEDS: SUCRALFATE 1 GM TAB PO SCH ×4 (06:24→20:33)
[2019-02-07] MEDS: LEVALBUTEROL NEBS 1.25 MG/3 ML VIAL NEB SCH ×4 (07:59→19:51)
--- NOTE | 2019-02-07 08:26 | PN ---
DATE: 02/06/19 SUPERVISING PHYSICIAN: Mehran Arrington M.D. SUBJECTIVE: The patient is sitting up in bed. Her anxiety is much better. She is having some oxygen saturation decreases and she has a long history of respiratory problems with ARDS. She does have some shortness of breath but feels like she is not too far from her normal baseline. Her oxygen saturation drops to the 80s on room air when she goes to the restroom and with exertion even with oxygen she drops down to 87 to 88. She has oxygen at home but sometimes she said she wears it only when she feels short of breath. Otherwise, she has no patients of nausea or vomiting and denies any chest pain.. OBJECTIVE: VITAL SIGNS: Temperature 97.6, heart rate 78, blood pressure 127/79, respiratory rate 20, O2 sat 97% on 4 liters nasal cannula. RESPIRATORY: Diminished at the bases and does have a few scattered rhonchi in the upper lung liao. She does get tachypneic at times. CARDIAC: Regular rate and rhythm. GASTROINTESTINAL: Abdomen is soft, nondistended. It is diffusely tender, especially along the incisional area. NEUROLOGIC: She is awake, alert and oriented times three. LABORATORY: WBCs are 12.2 with hemoglobin 9.9, hematocrit 29.4. She has a left shift on her differential. Sodium 126, potassium 3.5, chloride 90, serum osmolality 255, magnesium 1.6, bilirubin of 1. All other labs and films have been reviewed via the EMR ASSESSMENT: 1. Esophageal hernia status post repair performed by Dr. Mehran Ferguson, general surgeon. Postoperative day #3. 2. Chronic obstructive pulmonary disease with a history of ARDS. At this time, she may be having pneumonia-like symptoms or some exacerbation of her chronic\ obstructive pulmonary disease. 3. Gastroesophageal reflux disease. 4. Hypertension on medication,. 5. Tobacco abuse with a 30 pack year smoking history. She stopped smoking in June 2018. . 6. 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 7. Anxiety. PLAN: We will continue present supportive care. Will defer operative issues per Dr. Ferguson. We have ordered a chest x-ray and after we get the results of that, she may need to be started on some antibiotics. We will have to do aggressive pulmonary hygiene and watch her respiratory status closely as she has a long history of respiratory problems with ARDS. I have given her some potassium and magnesium supplementation. We have ordered labs for the int he morning and also ordered a chest x-ray and will continue to monitor closely and follow as needed. #[id number] [facility]
[2019-02-07] MEDS ORDERED: KCL 20 MEQ/NS 1,000 ML IVS PRN (08:52)
[2019-02-07] MEDS: SERTRALINE HCL 50 MG TAB PO SCH (09:33)
[2019-02-07] MEDS: LISINOPRIL 10 MG TAB PO SCH ×2 (09:33→20:33)
[2019-02-07] MEDS: guaiFENesin 100 MG/5 ML 10 ML UD PO SCH ×4 (09:33→20:34)
[2019-02-07] MEDS: ENOXAPARIN SODIUM 40 MG/0.4 ML SYG SUBCU SCH (09:33)
[2019-02-07] MEDS: SODIUM CHLORIDE 0.9% (FLUSH) 10 ML SYG IV SCH ×2 (09:36→20:34)
[2019-02-07] MEDS: ACETYLCYSTEIN 20 % 6,000 MG/30 ML VIAL NEB SCH ×3 (13:35→19:51)
--- NOTE | 2019-02-07 17:20 | RAD ---
EXAM: XR Chest, 1 View CLINICAL HISTORY: 68 years old and is Female; Follow up LLL infiltrate TECHNIQUE: Frontal view of the chest. COMPARISON: 02/06/2019 FINDINGS: Limitations: None. Lungs: There is stable bilateral airspace consolidation right greater than left superimposed on fibrosis. Pleural space: Stable small right pleural effusion. No pneumothorax. Heart: Unremarkable. No cardiomegaly. Mediastinum: Unremarkable. Bones/joints: Unremarkable. IMPRESSION: Stable abnormalities as above. Electronically signed by: Farrah Singh MD 02/07/2019 5:18 PM CDT
[2019-02-07] MEDS ORDERED: SODIUM CHLORIDE 0.9% 250ML 250 ML ONE (19:36)
[2019-02-07] MEDS ORDERED: SODIUM CHL 0.9% 50ML MIN-BAG+ 50 ML IVPB ONE (19:37)
[2019-02-07] MEDS ORDERED: cefTRIAXone SODIUM 1 GM VIAL ONE (19:38)
[2019-02-07] MEDS ORDERED: AZITHROMYCIN IV 500 MG VIAL IVPB ONE (19:39)
--- NOTE | 2019-02-07 20:07 | PN ---
DATE: 02/07/19 SUPERVISING PHYSICIAN: Kayode Mckinney M.D. SUBJECTIVE: Although the patient states that she feels better than she did yesterday, the nurses state that she is more shortness of breath and hypoxic than she was yesterday. She is coughing up quite a bit of phlegm. She did state that she passed some gas today. OBJECTIVE: 128/74, heart rate 102, respiratory rate 16, temperature 97.9, oxygen saturation 94% on 4 liters via nasal cannula. GENERAL: Ms. Mckinney is a 68 year-old female who is in mild respiratory distress at rest. NEUROLOGIC: The patient is alert and oriented. LUNGS: With some bilateral rhonchi more on expiration than inspiration. There is an end expiratory wheeze as well. CARDIOVASCULAR: Regular rate and rhythm. Normal S1 and S2. ABDOMEN: Soft. She does have some bowel sounds. LABORATORY: White count 11.6, hemoglobin 10.3, hematocrit 31.6, platelet count 383. Chemistry shows sodium 124, potassium 3.3, chloride 89, CO2 is 22, BUN 18, creatinine 1.01, calcium 8.9. Chest x-ray done does not show any significant changes from yesterday's. ASSESSMENT: 1. Esophageal hernia status post repair. Postoperative day #4. 2. Chronic obstructive pulmonary disease with an exacerbation currently. 3. Concern for developing pneumonia. 4. Gastroesophageal reflux disease. 5. Hypertension. 6. History of continuous nicotine dependency. 7. History of cerebrovascular accident. 8. Anxiety. PLAN: Given her respiratory status, will continue aggressive pulmonary toilet. I have added Mucomyst to her nebulizer therapies in an attempt to further liquefy her expectorant so that maybe we can clear that up a little bit. Her chest x-ray does not seem to be a whole lot worse, but her oxygen requirements are a little bit worse. Will try to get her a little bit better and will probably need to go home with oxygen. I am told she has oxygen at home already, however she is requiring more than her normal amount. Repeat labs and chest x- ray in the morning as well. #[id number] MTDD
[2019-02-07] MEDS: traZODone HCL 100 MG TAB PO SCH (20:33)
[2019-02-08] MEDS: HYDROcodone 10MG/APAP 325MG 1 EA TAB PO PRN ×3 (05:36→18:10)
[2019-02-08] MEDS: ALPRAZolam 0.25 MG TAB PO PRN ×4 (05:36→20:47)
[2019-02-08] MEDS: PANTOPRAZOLE SODIUM TAB 40 MG PO SCH (06:11)
[2019-02-08] MEDS: SUCRALFATE 1 GM TAB PO SCH ×4 (06:58→20:41)
--- NOTE | 2019-02-08 07:29 | RAD ---
EXAM: XR Chest, 1 View CLINICAL HISTORY: The patient is 68 years old and is Female; pneumonia TECHNIQUE: Frontal view of the chest. COMPARISON: Chest radiograph from 02/07/2019 FINDINGS: LUNGS: There is a right lower lung opacity which is increased compared to the prior study. This suggests atelectasis and/or pneumonia. There is also diffuse interstitial prominence in the lungs which appears similar to the prior exam. This is likely related to fibrotic change. PLEURAL SPACE: No obvious pneumothorax. Probable small right pleural effusion. HEART: Stable enlargement of the cardiac silhouette. MEDIASTINUM: Unremarkable. BONES/JOINTS: The bones are unchanged. IMPRESSION: Slight interval worsening of right lower lung opacity which likely represents atelectasis, pneumonia, and/or pleural effusion. Electronically signed by: Linda Severino MD 02/08/2019 7:27 AM CDT
[2019-02-08] MEDS ORDERED: MAGNESIUM HYDROXIDE 30 ML UD PO ONE (08:04)
[2019-02-08] MEDS: guaiFENesin 100 MG/5 ML 10 ML UD PO SCH ×4 (08:45→20:40)
[2019-02-08] MEDS: LISINOPRIL 10 MG TAB PO SCH ×2 (08:46→20:40)
[2019-02-08] MEDS: SODIUM CHLORIDE 0.9% (FLUSH) 10 ML SYG IV SCH ×2 (08:46→20:41)
[2019-02-08] MEDS: ENOXAPARIN SODIUM 40 MG/0.4 ML SYG SUBCU SCH (08:46)
[2019-02-08] MEDS: SERTRALINE HCL 50 MG TAB PO SCH (08:46)
[2019-02-08] MEDS: LEVALBUTEROL NEBS 1.25 MG/3 ML VIAL NEB SCH ×4 (09:02→19:30)
[2019-02-08] MEDS: ACETYLCYSTEIN 20 % 6,000 MG/30 ML VIAL NEB SCH ×4 (09:02→19:30)
--- NOTE | 2019-02-08 13:14 | PN ---
SUPERVISING PHYSICIAN: Kayode Mckinney MD DATE: 02/08/19 SUBJECTIVE: The patient states she feels better than she did yesterday. She is sitting on the side of the bed. It looks like she is breathing better. She is eating her breakfast without any difficulties. She is still, however, on 4 liters via nasal cannula. OBJECTIVE: VITAL SIGNS: Blood pressure 117/77. Heart rate 104. Respiratory rate 16. Temperature 97.5. Oxygen saturation 92% on 4 liters via nasal cannula. GENERAL: Ms. Mckinney is a 68-year-old female who is in no distress at this time. NEUROLOGIC: The patient is alert and oriented. LUNGS: Still quite coarse bilaterally. CARDIOVASCULAR: Regular rate and rhythm. Normal S1 and S2. ABDOMEN: Soft. Positive bowel sounds. GENITOURINARY: Deferred. EXTREMITIES: Lower extremities with no edema. RADIOLOGY: Chest x-ray done this morning states the right lower lung opacity which is atelectasis, pneumonia or pleural effusion is a little bit worse than it was yesterday. LABORATORY: Laboratories were not repeated today except for chemistry which showed sodium 132, pot 3.6, chloride 96, CO2 25, BUN 18, creatinine 0.79, glucose 121, calcium 8.8. ASSESSMENT: 1. Esophageal hernia status post repair. Postoperative day #5. 2. Chronic obstructive pulmonary disease with an exacerbation acutely. 3. Concern for developing pneumonia. 4. Gastroesophageal reflux disease. 5. Hypertension. 6. History of continuous nicotine dependency. 7. History of cerebrovascular accident. 8. Anxiety. PLAN: Clinically, the patient actually looks a little bit better than she did yesterday even though her oxygen saturations are only about 91% to 92% on 4 liters via nasal cannula. We will continue with pulmonary toileting and current antibiotic therapy. Repeat lab tomorrow as well as chest x-ray. #[id number] MTDD
[2019-02-08] MEDS ORDERED: SODIUM CHLORIDE 0.9% 250ML 250 ML ONE (20:07)
[2019-02-08] MEDS ORDERED: SODIUM CHL 0.9% 50ML MIN-BAG+ 50 ML IVPB ONE (20:07)
[2019-02-08] MEDS ORDERED: AZITHROMYCIN IV 500 MG VIAL IVPB ONE (20:08)
[2019-02-08] MEDS ORDERED: cefTRIAXone SODIUM 1 GM VIAL ONE (20:08)
[2019-02-08] MEDS: traZODone HCL 100 MG TAB PO SCH (20:41)
[2019-02-08] MEDS: cefTRIAXone SODIUM 1 GM in SODIUM CHL 0.9% 50ML MIN-BAG+ 50 ML IVPB SCH (22:24)
[2019-02-08] MEDS: AZITHROMYCIN IV 500 MG in SODIUM CHLORIDE 0.9% 250ML 250 ML IVPB SCH (23:01)
[2019-02-09] MEDS: HYDROcodone 10MG/APAP 325MG 1 EA TAB PO PRN ×3 (01:14→15:32)
[2019-02-09] MEDS: ALPRAZolam 0.25 MG TAB PO PRN ×4 (01:18→20:49)
[2019-02-09] MEDS: PANTOPRAZOLE SODIUM TAB 40 MG PO SCH (06:04)
[2019-02-09] MEDS: SUCRALFATE 1 GM TAB PO SCH ×4 (06:20→20:49)
--- NOTE | 2019-02-09 07:22 | RAD ---
EXAM DESCRIPTION: Chest,1 View CLINICAL HISTORY: hypoxia, possible developing pneumonia. FINDINGS/ IMPRESSION: Comparison 02/08/2019. Cardiomegaly. Diffuse interstitial edema. Better aeration of the right lung base likely improved atelectasis. No new or increasing pulmonary opacity. Electronically signed by: Kayode Griffiths MD 02/09/2019 7:17 AM CDT
[2019-02-09] MEDS: ACETYLCYSTEIN 20 % 6,000 MG/30 ML VIAL NEB SCH ×4 (08:01→20:50)
[2019-02-09] MEDS: LEVALBUTEROL NEBS 1.25 MG/3 ML VIAL NEB SCH ×4 (08:01→20:50)
[2019-02-09] MEDS: ENOXAPARIN SODIUM 40 MG/0.4 ML SYG SUBCU SCH (08:27)
[2019-02-09] MEDS: SERTRALINE HCL 50 MG TAB PO SCH (08:28)
[2019-02-09] MEDS: guaiFENesin 100 MG/5 ML 10 ML UD PO SCH ×4 (08:29→20:49)
[2019-02-09] MEDS: SODIUM CHLORIDE 0.9% (FLUSH) 10 ML SYG IV SCH ×2 (08:31→20:50)
[2019-02-09] MEDS ORDERED: MAGNESIUM HYDROXIDE 30 ML UD PO ONE (09:12)
[2019-02-09] MEDS: LISINOPRIL 10 MG TAB PO SCH ×2 (09:53→20:49)
--- NOTE | 2019-02-09 11:33 | PN ---
SUPERVISING PHYSICIAN: Kayode Mckinney MD DATE: 02/09/19 SUBJECTIVE: The patient is sitting up in bed. She has not had a bowel movement since admission. She received a dose of Milk of Magnesia yesterday and still has had no results. She also has some shortness of breath, but no nausea or vomiting. We discussed discharge plan as going to pulmonary rehab at [facility] in [place] and she has agreed to do that if she is accepted. OBJECTIVE: VITAL SIGNS: Temperature 97.5. Heart rate 79. Blood pressure 123/77. Respiratory rate 18. O2 saturation 92% on 4 liters nasal cannula. She does drop to the mid-80s with any kind of exertion or ambulation and that is on oxygen. RESPIRATORY: Diminished breath sounds throughout. She is tachypneic and has to speak in short phrases. CARDIAC: Regular rate and rhythm. GASTROINTESTINAL: Abdomen is soft. It is slightly distended. Bowel sounds are hypoactive. She has a midline incision with carlotta that shows no signs or symptoms of complications. NEUROLOGIC: She is awake, alert and oriented times three. LABORATORY: WBCs 9,600, hemoglobin 8.7, hematocrit 26.4. Electrolytes are basically within normal limits. Chest x-ray shows cardiomegaly, diffuse interstitial edema, better aeration of the right lung base, likely improved atelectasis. No new or increasing pulmonary opacity. All other labs and films have been reviewed via the EMR ASSESSMENT: 1. Esophageal hernia status post repair, postoperative day #6. 2. Chronic obstructive pulmonary with acute exacerbation. 3. Concerns for developing pneumonia. 4. Gastroesophageal reflux disease. 5. Hypertension. 6. History of continuous nicotine dependency. 7. History of cerebrovascular accident. 8. Anxiety. PLAN: We will continue present supportive care. At this point, I believe she is stable from a surgical standpoint. I will discuss this with Dr. Ferguson, but I do not believe she is safe to go home due to her extensive pulmonary history, especially history of ARDS after hospitalization. She continues to have desaturations in the mid-80s even with oxygen supplementation. She may need to be discharged to pulmonary rehab at [facility] in [place]. [facility] has been contacted and they are going to come evaluate the patient this afternoon. Hopefully if she continues to be stable and if it is okay from a surgical standpoint per Dr. Ferguson, she can be transferred to that facility for pulmonary rehab. I repeated some lab in the morning. I have also given her one additional dose of Milk of Magnesia and hope that she will have a bowel movement today. We will continue to monitor the patient closely and follow as needed. #[id number] MTDD
[2019-02-09] MEDS ORDERED: SODIUM PHOS/BIPHOS ENEMA ADULT 133 ML BTTL PR ONE (17:05)
[2019-02-09] MEDS ORDERED: SODIUM CHLORIDE 0.9% 250ML 250 ML ONE (20:39)
[2019-02-09] MEDS ORDERED: SODIUM CHL 0.9% 50ML MIN-BAG+ 50 ML IVPB ONE (20:39)
[2019-02-09] MEDS ORDERED: cefTRIAXone SODIUM 1 GM VIAL ONE (20:40)
[2019-02-09] MEDS ORDERED: AZITHROMYCIN IV 500 MG VIAL IVPB ONE (20:41)
[2019-02-09] MEDS: traZODone HCL 100 MG TAB PO SCH (20:49)
[2019-02-09] MEDS: HYDROcodone 5MG/APAP 325MG 1 EA TAB PO PRN (20:50)
[2019-02-09] MEDS: cefTRIAXone SODIUM 1 GM in SODIUM CHL 0.9% 50ML MIN-BAG+ 50 ML IVPB SCH (22:10)
[2019-02-09] MEDS ORDERED: AZITHROMYCIN 250 MG TAB PO ONE (22:48)
[2019-02-10] MEDS: HYDROcodone 5MG/APAP 325MG 1 EA TAB PO PRN ×3 (03:38→15:35)
[2019-02-10] MEDS: ALPRAZolam 0.25 MG TAB PO PRN ×4 (03:39→16:53)
[2019-02-10] MEDS: PANTOPRAZOLE SODIUM TAB 40 MG PO SCH (06:11)
[2019-02-10] MEDS: SUCRALFATE 1 GM TAB PO SCH ×3 (06:12→16:49)
[2019-02-10] MEDS: LEVALBUTEROL NEBS 1.25 MG/3 ML VIAL NEB SCH ×2 (08:10→12:48)
[2019-02-10] MEDS: ACETYLCYSTEIN 20 % 6,000 MG/30 ML VIAL NEB SCH ×3 (08:10→16:30)
[2019-02-10] MEDS ORDERED: CEFDINIR 300 MG CAP PO SCH (09:00)
[2019-02-10] MEDS: ENOXAPARIN SODIUM 40 MG/0.4 ML SYG SUBCU SCH (09:34)
[2019-02-10] MEDS: guaiFENesin 100 MG/5 ML 10 ML UD PO SCH ×3 (09:34→16:53)
[2019-02-10] MEDS: SERTRALINE HCL 50 MG TAB PO SCH (09:34)
[2019-02-10] MEDS: LISINOPRIL 10 MG TAB PO SCH (09:34)
[2019-02-10] MEDS: SODIUM CHLORIDE 0.9% (FLUSH) 10 ML SYG IV SCH (09:35)
[2019-02-10 13:34] VITALS: O2SAT 96
[2019-02-10 16:22] VITALS: BP 130/79; TEMP 98.8
--- NOTE | 2019-02-11 14:47 | DS ---
SUPERVISING PHYSICIAN: Kayode Mckinney MD DISCHARGE DIAGNOSIS: 1. Esophageal hernia status post repair, postoperative day #7. 2. Chronic obstructive pulmonary disease with acute exacerbation and a history of adult respiratory distress syndrome after her cerebrovascular accident. She was on the ventilator for approximately 30 days and had a tracheostomy. 3. Concerns for developing pneumonia. 4. Gastroesophageal reflux disease. 5. Hypertension. 6. History of continuous nicotine dependency. 7. History of cerebrovascular accident. 8. Anxiety. HISTORY OF PRESENT ILLNESS: This is a 68-year-old female patient who was admitted to the hospital for an esophageal hernia repair performed by Dr. Mehran Ferguson, general surgeon. About 2 years ago, the patient was told she had an esophageal hernia, but it was too small to be repaired at that time. Over the last few years, the pain has increased as well as the frequency of her pain. The pain was epigastric and started to radiate up through her back and toward her neck. She saw Dr. Sesay at [facility] and was referred her to Dr. Ferguson, general surgeon. On the date of admission, she had an esophageal hernia repair. There were no problems intraoperatively and the patient admitted to the Medical/Surgical Floor after the procedure. HOSPITAL COURSE: Postoperatively, she had no problems other than her respiratory issues. Surgically, she improved on a daily basis. She started out on a BEVERAGE HOST pump and was transitioned to oral pain medications. She was started on clear liquids and tolerated those without any problems. She had aggressive pulmonary hygiene including incentive spirometry. Surgically, she clinically improved, but her respiratory status was poor. She would frequently take her oxygen off as well as she had frequent desaturations with any exertion or was taking her oxygen off. Her O2 saturations would drop into the 70s with exertion or up to the restroom. Once her oxygen was on, she would come up into the upper 80s. She would actually drop into the mid-80s even with her oxygen. She does have a significant history of smoking as well as respiratory issues. She actually had ARDS after her stroke and was in ICU for 30 days with a tracheostomy on a ventilator. Several days after her procedure, a chest x-ray was ordered and she had worsening in the right lower lung that was treated for pneumonia with azithromycin and Rocephin. Her laboratory stabilized and her white count normalized. Due to her extensive respiratory problems and history, it was decided that she would be evaluated for pulmonary rehab at [facility] in [place]. Dr. Ferguson released her from a surgical point of view. She did have some problems with constipation, but after Milk of Magnesia and an enema, she had several significant bowel movements. [facility] has accepted her for their pulmonary rehab. She will be discharged to [facility] today in stable condition. LABORATORY: Her initial white count was 13,800 and over the course of her stay, it improved and on the day prior to discharge, it was 9,600. Hemoglobin and hematocrit were 10.3 and 32 initially and did drop to 8.7 and 26.6. Her platelet count was normal at 379. Initially, she had a left shift on her differential and her neutrophils were 68.9% on discharge. Her sodium was low at 133, went down to 124 and on discharge is 137. Potassium was 3.6, dropped as low as 3.3, receive supplementation and is now 3.8. BUN and creatinine were stable at 16 and 0.64. Magnesium was low at 1.6 and after supplementation is now 2.3. RADIOLOGY: Final chest x-ray showed cardiomegaly, diffuse interstitial edema, better aeration of the right lung base likely improved atelectasis. No new or increasing pulmonary opacity. DISCHARGE PLAN: The patient will be discharged to [facility] in [place] for a history of pulmonary rehab. She is in good condition. She is to increase her activity as per respiratory therapy and physical therapy. She is to followup with Dr. Sesay after discharged as well as Dr. Ferguson. She is to continue with soft foods for now until she is advanced by Dr. Ferguson. In addition to her routine medications, I have also added Xanax. She is continued on cefdinir as she has completed her Rocephin and azithromycin for her pneumonia-like symptoms. After returning from rehab, she is to return to the hospital or followup with Dr. Ferguson for any problems or complications. DISCHARGE MEDICATIONS: 1. Pantoprazole. 2. Sertraline. 3. Trazodone. 4. Sucralfate. 5. Acetaminophen. 6. Lisinopril. 7. Alprazolam. 8. Cefdinir. 9. Guaifenesin. #[id number] [facility]
== END 2019-02-10 17:42 | DRG 326 ==
LOC: AMB 05:31 → MS 12:15
PROVIDERS: ADMIT Surgery; ATTEND Nurse Practitioner Acute Care
PROC: 0BUT0JZ Supplement Diaphragm with Synthetic Substitute, Open Approach (ICD-10-PCS; principal; 2019-02-03 09:25)
DX: K44.9 Diaphragmatic hernia without obstruction or gangrene (principal); J18.9 Pneumonia, unspecified organism; I69.354 Hemiplegia and hemiparesis following cerebral infarction affecting left non-dominant side; J44.0 Chronic obstructive pulmonary disease with (acute) lower respiratory infection; J44.1 Chronic obstructive pulmonary disease with (acute) exacerbation; R09.02 Hypoxemia; E87.6 Hypokalemia; K59.00 Constipation, unspecified; K21.9 Gastro-esophageal reflux disease without esophagitis; I10 Essential (primary) hypertension; F41.9 Anxiety disorder, unspecified; Z87.891 Personal history of nicotine dependence; Z90.49 Acquired absence of other specified parts of digestive tract; Z98.84 Bariatric surgery status; Z88.0 Allergy status to penicillin; Z79.899 Other long term (current) drug therapy

== ENCOUNTER 2019-03-08 09:43 | Emergency (ER) | payer MEDICARE, BC ==
[2019-03-08] MEDS ORDERED: HYDROmorphone HCL INJ 2 MG/ML VIAL IV ONE ×3 (11:03→12:57)
[2019-03-08] MEDS ORDERED: KCL 20MEQ/D5 1/2NS 1,000 ML IVS PRN (11:05)
--- NOTE | 2019-03-08 11:13 | ED.PDOC ---
History of Present Illness - General Chief Complaint: Abdominal Pain Stated Complaint: abdominal pain Time Seen by Provider: 03/08/19 10:03 Information Source: patient, family Exam Limitations: no limitations - History of Present Illness Initial Comments: HAD HIATAL HERNIA SURGERY 6 WKS AGO FOR HIATAL-TYPE HERNIA PAIN AND SEVERE REFLUX. PT HAD APPROPRIATE POST-OP PAIN. PT FEELS THE PAIN STARTED 4 D AGO, WORSE IN EPIGASTRIC REGION. HAVING DAILY BM'S AND NL FLATUS. DR. DOMINGUEZ IS PCP. DR ESQUIVEL CAME TO SEE HER AT BEDSIDE IN ER. ABD SURGICAL HX: GALLBLADDER, C-SXN, TUBAL LIGATION, BLADDER PEXY (NOT SLING), SHAWNA FUNDOPLICATION, HIATAL-TYPE HERNIA REPAIR. ALLG: PT STATES SHE'S ALLERGIC TO MORPHINE BUT NOT DILAUDID. Abdominal Pain Onset Location: epigastric Pain Radiation: periumbilical Quality: severe, steady Timing/Duration: constant Improving Factors: nothing Worsening Factors: movement Associated Symptoms: denies symptoms Review of Systems - Review of Systems Constitutional: Denies: chills, fever EENTM: States: no symptoms reported Respiratory: States: no symptoms reported. Denies: short of breath Cardiology: States: no symptoms reported. Denies: chest pain Gastrointestinal/Abdominal: States: abdominal pain. Denies: constipation, diarrhea, nausea, vomiting Genitourinary: States: no symptoms reported. Denies: pain Musculoskeletal: States: no symptoms reported Skin: States: no symptoms reported Neurological: States: no symptoms reported Endocrine: States: no symptoms reported Hematologic/Lymphatic: States: no symptoms reported All other Systems: Reviewed and Negative Past Medical History (General) - Patient Medical History Hx Seizures: No Hx Stroke: Yes - 2004 Hx Asthma: No Hx of COPD: Yes Hx Congestive Heart Failure: No Hx Pacemaker: No Hx Hypertension: Yes Hx Diabetes: No Hx Gastroesophageal Reflux: Yes Hx MRSA: No Surgical History: other - Vaccination History Hx Influenza Vaccination: Yes Hx Pneumococcal Vaccination: Yes - Social History Hx Tobacco Use: Yes Hx Alcohol Use: No Hx Substance Use: No Hx Physical Abuse: No Hx Emotional Abuse: No Family Medical History - Family History Mother Family History: Unknown Physical Exam - Physical Exam General Appearance: Alert, Well Groomed Eyes, Ears, Nose, Throat Exam: PERRL/EOMI, normal ENT inspection Neck: non-tender, full range of motion Respiratory: chest non-tender, lungs clear Cardiovascular/Chest: normal peripheral pulses, regular rate, rhythm Gastrointestinal/Abdominal: soft, no organomegaly, no pulsatile mass, abnormal bowel sounds - DECREASED BUT NOT ABSENT., tenderness - TTP EPIGASTRIC, AND GENERALIZED TTP. NO G/R. Back Exam: normal inspection, no CVA tenderness, no vertebral tenderness Extremity: normal range of motion, non-tender, normal inspection, no pedal edema, no calf tenderness Neurologic: no motor/sensory deficits, alert, oriented x 3 Skin Exam: normal color, warm/dry Lymphatic: no adenopathy Progress - Progress Progress: 03/08/19 12:57 PT STILL IN PAIN SO ORDERING MORE DILAUDID. 03/08/19 14:[address] SHOWS STOOL IN ASCENDING AND TRANSVERSE COLON, RESULTING IN DISTENTION OF SMALL BOWEL, RESULTING IN PAIN. THE SURGEON, DR. DE LA TORRE, GRACIOUSLY CAME TO THE BEDSIDE TWICE AND CONSULTED WITH ME. NO SURGICAL CONCERNS. I HAD AN IN DEPTH D/W THE PT ABOUT HER DIET. SHE ADMITS TO EATING MAINLY "SPANISH DIET" WITH POTATOES, FLOUR, AND FRIED FOODS. I EDUCATED ABOUT AVOIDANCE AND INCR FRUITS AND VEGETABLES. 03/08/19 14:51 Departure - Departure Clinical Impression: Gaseous distention of intestine determined by X-ray, Multiple air fluid levels of small intestine determined by X-ray Abdominal pain Qualifiers: Abdominal location: generalized Qualified Code(s): R10.84 - Generalized abdominal pain Constipation Qualifiers: Constipation type: other constipation type Qualified Code(s): K59.09 - Other constipation Disposition: Discharge to Home or Self Care Condition: Good Departure Forms: ED Discharge - Pt. Copy, Patient Portal Self Enrollment Instructions: Constipation, Adult (DC), High Fiber Diet Diet: other - Eat more dark, green, leafy salads and fruits and vegetables (but not potatoes). Try to avoid "[place]vian diet" flour and fried foods. Activity: increase activity as tolerated Referrals: Arnel Dominguez MD [Primary Care Provider] - 1-2 Weeks Home Medications: Ambulatory Orders Pantoprazole Sodium [Protonix] 20 mg PO ACBK 12/13/18 Sertraline HCl 2 tablet PO DAILY 12/13/18 Sucralfate 1 tablet PO QID 01/27/19 Trazodone HCl 2 tablet PO DAILY 01/27/19 Acetaminophen [Tylenol] 500 mg PO PRN PRN 02/03/19 Lisinopril 10 mg PO BID 02/03/19 ALPRAZolam [Xanax] 0.25 mg PO Q4H PRN #20 tab 02/10/19 Cefdinir [Omnicef] 300 mg PO BID cap 02/10/19 guaiFENesin 100 MG/5 ML [Robitussin] 15 ml PO QID ud 02/10/19
--- NOTE | 2019-03-08 13:30 | CT ---
EXAM DESCRIPTION: Abdomen/Pelvis w/Contrast: Computed Tomography. CLINICAL HISTORY: 68 years Female ABD PAIN. Midline pain. UMBILICAL HERNIA SURGERY 6 WKS AGO. COMPARISON: CT scan abdomen and pelvis without and with IV contrast 01/20/2019. TECHNIQUE: Spiral-axial scans at 5 x 5 mm intervals through the abdomen and pelvis, after nonionic IV contrast no oral contrast. Coronal and sagittal 2.0 mm reconstructions. No delayed scans. No adverse reactions. Total Exam DLP: 268.62 mGy-cm. This exam was performed according to our departmental dose-optimization program which includes automated exposure control, adjustment of the mA and/or kV according to patient size and/or use of iterative reconstruction technique; to reduce radiation dose to as low as reasonably achievable (ALARA). FINDINGS: Abdominal wall and back soft tissues: Midline hernia repair site visualized, superior to the umbilicus with no recurrent hernia soft tissue mass edema or fluid collection. Typical postsurgical changes. Also midline postsurgical changes below the umbilicus. No mesenteric or bowel herniation.. Lung bases and pleura: Bilateral basilar parenchymal pleural scarring. Liver, Stomach, Spleen, Adrenal Glands: Negative findings in stable since the prior study Pancreas, Gallbladder, Ducts: Surgical clips gallbladder fossa with no fluid. Minimal dilation of intrahepatic and extrahepatic biliary duct. Negative pancreas stable. Kidneys and Ureters: Bilateral cortical cysts are stable. Mesentery: No ascites or inflammatory process. Aorta: Moderate atherosclerotic calcification also involving major branch vessels at the ostia, narrowing of the distal lumen. Unchanged from the prior study. Small Bowel: Minimal distention of the ileum and distal jejunum with fluid and air-fluid levels. Terminal Ileum/Cecum: Distention of the cecum in the right pelvis abutting the bladder and the right pelvic wall. Minimal distention of the terminal ileum with fluid and fecalization. No air-fluid level. Appendix not seen. Colon: Fecal material and gas with air-fluid levels ascending colon. Transverse colon is redundant inferiorly at the level of the upper pelvis with prominent fecal material proximally and air-fluid levels. Normal caliber of the distal transverse colon down to the rectosigmoid with minimal thecal material and gas. Minimal redundancy of the sigmoid colon. No complications. Pelvic Organs: Bladder is distended with no radiodense stones. No free fluid. Spine and Bony Pelvis: Thoracolumbar dextroscoliosis. Old compression injury L1 superiorly with minimal retropulsion stable. Spondylosis at several levels of the included thoracic spine. Minimal narrowing of the hip joints at the level of the superior lateral acetabular facets and minimal hypertrophic changes in the inferior medial hip joints are stable. Pubic symphysitis stable. Also hypertrophic changes on the right greater trochanter with evidence of incompletely healed fracture stable since the prior study. IMPRESSION: 1. No recurrent hernia in the midline or evidence of surgical complications. No mass or fluid collections. 2. Mid and distal small bowel minimally distended with fluid and air-fluid levels. This fluid distention continues into the cecum, with marked fecal distention of the ascending colon and proximal transverse colon. Remainder of the colon normal caliber. No free air or ascites. This has progressed since the prior study. Electronically signed by: Michel Meza MD 03/08/2019 1:29 PM CDT
[2019-03-08 15:08] VITALS: O2SAT 98
[2019-03-08 15:10] VITALS: BP 163/82
[2019-03-08 15:21] VITALS: TEMP 97.8
== END 2019-03-08 15:00 | disposition home or self-care (01) ==
LOC: ER 09:43
DX: R10.84 Generalized abdominal pain (principal); K59.09 Other constipation; K21.9 Gastro-esophageal reflux disease without esophagitis; J44.9 Chronic obstructive pulmonary disease, unspecified; I10 Essential (primary) hypertension; Z87.891 Personal history of nicotine dependence; Z86.73 Personal history of transient ischemic attack (TIA), and cerebral infarction without residual deficits; Z88.5 Allergy status to narcotic agent; Z98.890 Other specified postprocedural states
CPT/HCPCS: 36415; 36416; 74177; 80053; 81001; 83690; 85025; J1170

== ENCOUNTER 2019-03-09 12:38 | Observation (INO) | payer MEDICARE, BC ==
[2019-03-09] MEDS ORDERED: ALUM & MAG HYDROX-SIMETHICONE 30 ML, LIDOCAINE VISCOUS 2% 15 ML PO ONE ×2 (12:59)
[2019-03-09] MEDS ORDERED: ALUM & MAG HYDROX-SIMETHICONE 30 ML UD ONE (13:03)
[2019-03-09] MEDS ORDERED: LIDOCAINE HCL 2% (MOUTH-THROAT) 15 ML UD ONE (13:03)
--- NOTE | 2019-03-09 13:03 | ED.PDOC ---
History of Present Illness - General Chief Complaint: Abdominal Pain Stated Complaint: abdominal pain Time Seen by Provider: 03/09/19 12:56 Information Source: patient Exam Limitations: no limitations - History of Present Illness Initial Comments: THIS PATIENT COMES TO THE ED WITH SEVERE EPIGASTRIC PAIN 04/21 THAT RADIATES TO THE BACK. SHE WAS HERE YESTERDAY WITH SIMILAR SYMPTOMS. SHE WAS WORKED UP AND NO OBJECTIVE FINDINGS WERE NOTED. SHE VOICES THAT SHE HAD HYATAL HERNIA SURGERY [address] ESQUIVEL AND THAT SHE HAS HAD EPIGASTRIC PAIN NOW FOR SEVERAL MONTHS, EVEN BEFORE THE SURGERY. Abdominal Pain Onset Location: epigastric Pain Radiation: back Quality: severe Timing/Duration: other - MONTHS Improving Factors: nothing Associated Symptoms: chest pain, nausea/vomiting Review of Systems - Review of Systems Constitutional: States: no symptoms reported EENTM: States: no symptoms reported Respiratory: States: no symptoms reported Cardiology: States: no symptoms reported Gastrointestinal/Abdominal: States: abdominal pain, nausea Genitourinary: States: no symptoms reported Musculoskeletal: States: no symptoms reported Skin: States: no symptoms reported Neurological: States: no symptoms reported Past Medical History (General) - Patient Medical History Hx Seizures: No Hx Stroke: Yes - 2004 Hx Asthma: No Hx of COPD: Yes Hx Congestive Heart Failure: No Hx Pacemaker: No Hx Hypertension: Yes Hx Diabetes: No Hx Gastroesophageal Reflux: Yes Hx MRSA: No - Vaccination History Hx Influenza Vaccination: Yes Hx Pneumococcal Vaccination: Yes - Social History Hx Tobacco Use: Yes Hx Alcohol Use: No Hx Substance Use: No Hx Physical Abuse: No Hx Emotional Abuse: No Family Medical History - Family History Mother Family History: Unknown Physical Exam - Physical Exam General Appearance: Alert, Ill Appearing, Well Developed, Well Groomed, Well Hydrated, Well Nourished Eyes, Ears, Nose, Throat Exam: PERRL/EOMI, normal ENT inspection Neck: non-tender, full range of motion, supple, normal inspection Respiratory: chest non-tender, lungs clear, normal breath sounds Cardiovascular/Chest: normal peripheral pulses, regular rate, rhythm, no edema, no gallop, no JVD, no murmur Gastrointestinal/Abdominal: normal bowel sounds, soft, other - EXQUISITE EPIGASTRIC PAIN ON PALPATION, THERE IS A MIDLINE SCAR THAT LOOKS INTACT. THE LIVER AND SPLEEN ARE NOT ENLARGED. NO REBOUND TENDERNESS NOTED. Rectal Exam: deferred Progress - Progress Progress: 03/09/19 14:19 03/09/19 13:00 EKG STAT Laboratory Results WBC 7.4 K/mm3 (4.8-10.8) 03/09/19 13:11 RBC 4.23 M/mm3 (4.20-5.40) 03/09/19 13:11 Hgb 11.0 gm/dL (12.0-16.0) L 03/09/19 13:11 Hct 33.1 % (36.0-47.0) L 03/09/19 13:11 MCV 78.3 fl (81.0-99.0) L 03/09/19 13:11 MCH 26.0 pg (27.0-31.0) L 03/09/19 13:11 MCHC 33.2 g/dL (33.0-37.0) 03/09/19 13:11 RDW 17.0 % (11.5-14.5) H 03/09/19 13:11 Plt Count 380 K/mm3 (130-400) 03/09/19 13:11 MPV 7.2 fl (7.40-10.4) L 03/09/19 13:11 Absolute Neuts (auto) 4.50 K/uL (1.8-6.8) 03/09/19 13:11 Absolute Lymphs (auto) 2.00 K/uL (1.0-3.4) 03/09/19 13:11 Absolute Monos (auto) 0.70 K/uL (0.2-0.8) 03/09/19 13:11 Absolute Eos (auto) 0.10 K/uL (0.0-0.4) 03/09/19 13:11 Absolute Basos (auto) 0.10 K/uL (0.0-0.1) 03/09/19 13:11 Neutrophils % 60.9 % (42.0-78.0) 03/09/19 13:11 Lymphocytes % 26.7 % (20.0-50.0) 03/09/19 13:11 Monocytes % 9.5 % (2.0-9.0) H 03/09/19 13:11 Eosinophils % 1.5 % (1.0-5.0) 03/09/19 13:11 Basophils % 1.4 % (0.0-2.0) 03/09/19 13:11 Sodium 135 mmol/L (135-145) 03/09/19 13:11 Potassium 3.8 mmol/L (3.6-5.0) 03/09/19 13:11 Chloride 99 mmol/L (101-111) L 03/09/19 13:11 Carbon Dioxide 19 mmol/L (21-31) L 03/09/19 13:11 Anion Gap 20.8 (12-18) H 03/09/19 13:11 BUN 13 mg/dL (7-18) 03/09/19 13:11 Creatinine 0.87 mg/dL (0.6-1.3) 03/09/19 13:11 BUN/Creatinine Ratio 14.9 (10-20) 03/09/19 13:11 Random Glucose 101 mg/dL (70-105) 03/09/19 13:11 Serum Osmolality 270.4 mOsm/L (275-295) L 03/09/19 13:11 Calcium 9.8 mg/dL (8.4-10.2) 03/09/19 13:11 Total Bilirubin 0.7 mg/dL (0.2-1.0) 03/09/19 13:11 AST 23 IU/L (10-42) 03/09/19 13:11 ALT 12 IU/L (10-60) 03/09/19 13:11 Alkaline Phosphatase 76 IU/L (42-121) 03/09/19 13:11 Troponin I < 0.02 ng/mL (0.01-0.05) 03/09/19 13:11 Serum Total Protein 8.3 gm/dL (6.4-8.2) H 03/09/19 13:11 Albumin 4.4 g/dl (3.2-5.5) 03/09/19 13:11 Globulin 3.9 gm/dL (2.3-3.5) H 03/09/19 13:11 Albumin/Globulin Ratio 1.1 (1.1-1.9) 03/09/19 13:11 Lipase 24 U/L (22-51) 03/09/19 13:11 Urine Color Yellow (Yellow) 03/09/19 13:20 Urine Appearance Clear (Clear) 03/09/19 13:20 Urine pH >= 9.0 (4.5-7.8) H* 03/09/19 13:20 Ur Specific [place] 1.015 (1.005-1.030) 03/09/19 13:20 Urine Protein 30 mg/dL 03/09/19 13:20 Urine Glucose (UA) Negative mg/dL (Negative) 03/09/19 13:20 Urine Ketones Negative mg/dL (NEGATIVE) 03/09/19 13:20 Urine Blood Negative (Negative) 03/09/19 13:20 Urine Nitrite Negative 03/09/19 13:20 Urine Bilirubin Negative (NEGATIVE) 03/09/19 13:20 Urine Urobilinogen 0.2 mg/dL (0.2-1.0) 03/09/19 13:20 Ur Leukocyte Esterase Trace (Negative) H 03/09/19 13:20 Urine RBC 0-1 /hpf 03/09/19 13:20 Urine WBC 3-5 /hpf H 03/09/19 13:20 Ur Epithelial Cells 0 /hpf 03/09/19 13:20 Urine Bacteria Rare 03/09/19 13:20 03/09/19 15:[address] ESQUIVEL, WILL PLACE IN OBSERVATION - Results/Orders Results/Orders: EKG: HR OF 67, MS INTERVAL OF 158, QRS OF 96, QTC OF 519, AXES OF 16: IMPRESSION: S9INUS RHYTHM, PROLONGATION OF THE MS INTERVAL, NO ACUTE INJURY PATTERN Departure - Departure Clinical Impression: Abdominal pain in female patient Time of Disposition: 15:06 Disposition: Admit Patient Condition: Fair Referrals: Arnel Sesay MD [Primary Care Provider] - 1-2 Weeks Home Medications: Ambulatory Orders Pantoprazole Sodium [Protonix] 20 mg PO ACBK 12/13/18 Sertraline HCl 2 tablet PO DAILY 12/13/18 Sucralfate 1 tablet PO QID 01/27/19 Trazodone HCl 2 tablet PO DAILY 01/27/19 Acetaminophen [Tylenol] 500 mg PO PRN PRN 02/03/19 Lisinopril 10 mg PO BID 02/03/19 Decision To Admit - Decistion To Admit Decision to Admit Date: 03/09/19 Decision to Admit Time: 15:05
[2019-03-09] MEDS ORDERED: HYDROmorphone HCL INJ 2 MG/ML VIAL IV ONE (13:27)
[2019-03-09] MEDS ORDERED: ONDANSETRON INJ 4 MG/2 ML VIAL IV ONE (13:28)
--- NOTE | 2019-03-09 13:35 | RAD ---
EXAM DESCRIPTION: Chest,1 View CLINICAL HISTORY: chest/epigastric pain COMPARISON: February 09, 2019 IMPRESSION: Single AP portable upright view of the chest shows cardiac silhouette and pulmonary vasculature to be within normal limits. Lungs are normally aerated. Chronic appearing interstitial thickening in the lungs has a similar appearance to previous exam consistent with chronic interstitial fibrotic disease. Improved aeration is seen compared to previous. No new infiltrates or consolidations are identified.. No obvious pleural effusion or pneumothorax is seen. Electronically signed by: Abhilash Dudley MD 03/09/2019 1:33 PM CDT
--- NOTE | 2019-03-09 15:32 | HP ---
SUPERVISING PHYSICIAN: Shaheen Luis M.D. CHIEF COMPLAINT: Abdominal pain. HISTORY OF PRESENT ILLNESS: This is a 68 year-old female who came in with abdominal pain. Apparently she went to the E. R. yesterday as well. She had complaints of right upper quadrant abdominal pain along with epigastric pain associated with nausea and vomiting. The pain radiates to her back as well. She had had some chronic abdominal pain and this was deemed to be secondary to her paraesophageal hernia. However, this was repaired back in January. She states she has had some pain since then but it progressively worsened to the point she went to the E. R. yesterday and subsequently today. Her CAT scan in the E. R. yesterday showed nothing surgical but mid and distal small bowel distention with air-fluid levels. It continued into the cecum with marked distention of the ascending colon and proximal transverse colon. The remainder of the colon was normal. Her labs were unremarkable. She was told yesterday in the E. R. to drink mag citrate to try to clear out, however the pain was worse today so she came to the E. R. She has no complaints of fever or chills. At time of examination the patient is alert and oriented. Her pain is controlled right now as she got some Dilaudid in the Emergency Room. PAST MEDICAL HISTORY: 1. Hypertension. 2. Stroke. 3. Acute Respiratory Distress Syndrome. 4. Gastroesophageal reflux disease. 5. Chronic obstructive pulmonary disease. PAST SURGICAL HISTORY: 1. Cholecystectomy. 2. Hysterectomy. 3. Rotator cuff surgery. 4. Bilateral tubal ligation. 5. Paraesophageal hernia repair. CURRENT MEDICATIONS: Please see Med. Rec. list in the computer. ALLERGIES: NO KNOWN DRUG ALLERGIES. FAMILY HISTORY: Reviewed and noncontributory. SOCIAL HISTORY: She lives in [place], and has 2 daughters. She is a retired [employer]. She smoked for 30 years but quit in June of 2018. No alcohol and no illicit drugs. REVIEW OF SYSTEMS: Negative for fever and chills. No weight loss or weight gain. HEENT: No headaches, vision changes, ear pain, nasal congestion or throat pain. RESPIRATORY: No cough, hemoptysis or pleuritic chest pain. CARDIOVASCULAR: No chest pains, palpitations or peripheral edema. GASTROINTESTINAL: Positive for abdominal pain, nausea, vomiting or diarrhea. Positive for constipation. GENITOURINARY: No dysuria, frequency or flank pain. HEMATOLOGIC: No easy bruising or transfusion reaction. ENDOCRINE: No polydipsia, polyuria or polyphagia. No heat or cold intolerance. MUSCULOSKELETAL: No joint pain, joint swelling or muscle cramps. NEUROLOGIC: No paresthesias, syncope or seizures. INTEGUMENT: No rashes, lesions or wounds. PHYSICAL EXAMINATION: VITAL SIGNS: Blood pressure 151/87, heart rate 56, respiratory rate 20, temperature 97.2, oxygen saturation 99%. GENERAL: Ms. Mckinney is a 68 year-old female in no active distress currently. CHEST: Lungs are clear to auscultation bilaterally. CARDIOVASCULAR: Regular rate and rhythm. Normal S1 and S2. ABDOMEN: Soft. Positive bowel sounds. She does have tenderness to palpation, mainly epigastric in her upper and lower quadrants. GENITOURINARY: Exam is deferred. EXTREMITIES: Lower extremities are 2+ and equal. Capillary refill is less than 2 seconds. NEUROLOGIC: The patient is alert and oriented. LABORATORY: White count 7.4, hemoglobin 11.0, platelet count 380. Chemistry with a sodium of 135, potassium 3.8, chloride 99, CO2 is 19, BUN 13, creatinine 0.87, glucose 101, calcium 9.8. Bilirubin is normal at 0.7, lactic acid was 0.9. Urinalysis was not indicative of a urinary tract infection. ASSESSMENT: 1. Abdominal pain. 2. Fecal impaction. 3. History of chronic obstructive pulmonary disease with no acute exacerbation. 4. Mild metabolic acidosis on chemistry. 5. Hypertension. PLAN: At this time there is nothing surgical on the CT scan and labs are pretty much unremarkable, but she did have significant pain and required narcotic pain control in the Emergency Room. CT scan results from yesterday reveal pretty significant fecal impaction. We will be aggressive with trying to clear her out. I have ordered mag citrate as well as MiraLAX b.i.d. Will basically need to do a colonoscopy prep on her to get all of that out and then reevaluate and see if she is still having the pain. Due to the metabolic acidosis I am going to start her on some IV fluids. Hopefully she will have some results and can go home tomorrow. #[id number] [facility]
[2019-03-09] MEDS ORDERED: SODIUM CHLORIDE 0.9% (FLUSH) 10 ML SYG IV PRN (16:00)
[2019-03-09] MEDS ORDERED: IV SET AND CAP CHANGE INJ INJ SCH (16:00)
[2019-03-09] MEDS ORDERED: MAGNESIUM CITRATE 300 ML BTTL PO ONE (16:03)
[2019-03-09] MEDS: LACTATED RINGERS 1,000 ML IVS PRN (17:12)
[2019-03-09] MEDS: HYDROmorphone HCL INJ 2 MG/ML VIAL IV PRN ×2 (18:50→22:49)
[2019-03-09] MEDS: ONDANSETRON INJ 4 MG/2 ML VIAL IV PRN (18:50)
[2019-03-09] MEDS: POLYETHYLENE GLYCOL 3350 17 GM PCKT PO SCH (21:12)
[2019-03-10] MEDS ORDERED: QUEtiapine FUMARATE 100 MG TAB ONE (00:10)
[2019-03-10] MEDS: LISINOPRIL 10 MG TAB PO SCH ×3 (00:15→21:07)
[2019-03-10] MEDS: QUEtiapine FUMARATE 100 MG TAB PO SCH ×2 (00:15→21:07)
[2019-03-10] MEDS: LACTATED RINGERS 1,000 ML IVS PRN (03:07)
[2019-03-10] MEDS: HYDROmorphone HCL INJ 2 MG/ML VIAL IV PRN ×2 (03:09→07:15)
[2019-03-10] MEDS: ONDANSETRON INJ 4 MG/2 ML VIAL IV PRN ×2 (06:36→20:45)
[2019-03-10] MEDS ORDERED: LISINOPRIL 10 MG PO SCH (09:00)
[2019-03-10] MEDS ORDERED: ACETAMINOPHEN 500 MG TAB PO PRN (09:00)
[2019-03-10] MEDS: SERTRALINE HCL 50 MG TAB PO SCH (09:10)
--- NOTE | 2019-03-10 09:32 | RAD ---
EXAM DESCRIPTION: Abdomen Flat Upright CLINICAL HISTORY: constipation COMPARISON: None. FINDINGS: AP supine and upright views of the abdomen show a nonspecific, nonobstructive bowel gas pattern with no evidence for free intraperitoneal air. Surgical clips from cholecystectomy are seen. No air-filled dilated loops of small bowel are seen. No significant air-fluid levels are identified. Mildly dilated air-filled colon throughout the abdomen. No obvious organomegaly is seen. No abnormal calcifications are seen in the expected location of the renal collecting systems. Visualized lung bases show chronic interstitial markings without acute infiltrate or consolidation. IMPRESSION: Nonspecific abdominal series Electronically signed by: Abhilash Dudley MD 03/10/2019 9:30 AM CDT
[2019-03-10] MEDS: HYDROcodone 5MG/APAP 325MG 1 EA TAB PO PRN ×2 (09:43→18:40)
[2019-03-10] MEDS: ALPRAZolam 0.25 MG TAB PO PRN ×3 (09:43→21:14)
[2019-03-10] MEDS: POLYETHYLENE GLYCOL 3350 17 GM PCKT PO SCH ×2 (09:43→21:07)
--- NOTE | 2019-03-10 13:47 | PN ---
SUPERVISING PHYSICIAN: Shaheen Luis MD DATE: 03/10/19 SUBJECTIVE: The patient is sitting up on the side of the bed. She states she has had several bowel movements overnight and her abdominal pain is much improved. She actually feels hungry at this time. We discussed transitioning her from IV pain medications to oral pain medications and that she would need to decrease that due to the problems with constipation and would need to go home on MiraLAX to help prevent constipation. OBJECTIVE: VITAL SIGNS: Temperature 98.2. Heart rate 71. Blood pressure 138/78. Respiratory rate 19. O2 saturation 92% on room air. RESPIRATORY: Essentially clear to auscultation bilaterally. CARDIAC: Regular rate and rhythm. GASTROINTESTINAL: Abdomen is soft, nondistended. Bowel sounds are positive. She does have mild abdominal pain in the right upper quadrant and epigastric area. NEUROLOGIC: Awake, alert and oriented times three. LABORATORY: There is no lab to report at this time. RADIOLOGY: Her abdominal x-ray shows nonspecific abdominal series. All other labs and films have been reviewed via the EMR. ASSESSMENT: 1. Abdominal pain. 2. Fecal impaction. 3. History of chronic obstructive pulmonary disease with no acute exacerbation. 4. Mild metabolic acidosis on chemistry. 5. Hypertension. PLAN: We will continue present supportive care. I have re-ordered labs for in the morning as well as an abdominal x-ray. I have given her two additional doses of Milk of Magnesia today and hopefully she will have a full clean-out by tomorrow. I discontinued her Dilaudid and added Lyme. We will try to titrate that off tomorrow. For some reason, her Xanax did not get added to her home medications, so I have added that as she has quite a bit of anxiety. She will need to go home on MiraLAX. Hopefully, she can be discharged tomorrow. I will reevaluate her abdominal pain tomorrow after a complete clean-out. It has already improved, so hopefully her abdominal pain was the result of her constipation. Otherwise, we will continue to monitor the patient closely and follow as needed. #[id number] [facility]
[2019-03-10] MEDS ORDERED: SUCRALFATE 1 GM TAB PO ONE (14:08)
[2019-03-10] MEDS: MAGNESIUM HYDROXIDE 30 ML UD PO SCH ×2 (14:10→18:05)
[2019-03-10] MEDS: SUCRALFATE 1 GM TAB PO SCH ×2 (18:05→21:07)
[2019-03-10] MEDS ORDERED: QUEtiapine FUMARATE 100 MG TAB PO SCH (21:00)
[2019-03-10] MEDS ORDERED: traZODone HCL 100 MG TAB PO SCH (21:00)
[2019-03-11] MEDS: ONDANSETRON INJ 4 MG/2 ML VIAL IV PRN (05:48)
[2019-03-11] MEDS: ALPRAZolam 0.25 MG TAB PO PRN ×2 (05:48→11:52)
--- NOTE | 2019-03-11 06:44 | RAD ---
EXAM: XR Abdomen, 2 Views CLINICAL HISTORY: The patient is 68 years old and is Female; constipation TECHNIQUE: Frontal view of the abdomen/pelvis with upright view of the abdomen. COMPARISON: Abdominal radiographs from 03/10/2019 FINDINGS: LOWER THORAX: Interval increase in interstitial prominence in the lower lungs, suspicious for edema. INTRAPERITONEAL SPACE: No obvious free air. GASTROINTESTINAL TRACT: Few colonic air fluid levels visualized on the upright view. Minimal gaseous distention of the visualized colon. Otherwise, no significant bowel dilatation visualized to suggest obstruction. ORGANS: Surgical clips visualized projecting over the right upper quadrant, likely related to prior cholecystectomy. BONES/JOINTS: Degenerative changes of the spine. IMPRESSION: Findings may represent mild colonic ileus. Otherwise, no obvious acute findings. Electronically signed by: Linda Severino MD 03/11/2019 6:42 AM CDT
[2019-03-11] MEDS: SUCRALFATE 1 GM TAB PO SCH ×2 (06:55→11:23)
[2019-03-11] MEDS: SERTRALINE HCL 50 MG TAB PO SCH (08:05)
[2019-03-11] MEDS: LISINOPRIL 10 MG TAB PO SCH (08:05)
[2019-03-11] MEDS: POLYETHYLENE GLYCOL 3350 17 GM PCKT PO SCH (08:05)
[2019-03-11] MEDS: HYDROcodone 5MG/APAP 325MG 1 EA TAB PO PRN (08:47)
[2019-03-11 09:48] VITALS: BP 144/83; TEMP 97.8; O2SAT 96
--- NOTE | 2019-03-11 10:55 | CONS ---
DATE OF CONSULTATION: 03/09/19 REASON FOR CONSULTATION: Abdominal pain in the right lower quadrant, also complaints of pain at her previous incision which was determined to be the suture knot from our operation. HISTORY OF PRESENT ILLNESS: Ms. Mckinney has a history of abdominal pain, significant epigastric, which was unrelenting. She had a relatively normal endoscopy performed by me followed by a procedure to repair her paraesophageal hernia. At that time, I identified she had had a previous toupee type wrap for a twisted stomach which did not get revealed preoperatively. We knew she had had a cholecystectomy and a hysterectomy. She now has this pain more on the right side, somewhat in the middle of the abdomen. It does not seem to be related to meals, but it is crampy in nature and moves throughout her abdomen. Some nausea, no significant vomiting. She does have occasional loose stool, but relatively nonspecific. It is different than her original pain by history, but per the patient, she thinks it is the same kind of pain, however, it is different since I have seen her initially. PAST MEDICAL HISTORY: 1. Hypertension. 2. Stroke. 3. ARDS with prolonged hospitalization. 4. GERD. 5. COPD with history of smoking. She says she stopped smoking. PAST SURGICAL HISTORY: As above. CURRENT MEDICATIONS: Please see the list. She is not on any blood thinners. ALLERGIES: NO KNOWN DRUG ALLERGIES. SOCIAL HISTORY: She does live in [place]. There are some issues with her daughter causing quite a bit of anxiety within the household. Otherwise, she says she quit smoking last year and no alcohol or drug use. REVIEW OF SYSTEMS: As above, otherwise negative. PHYSICAL EXAMINATION: VITAL SIGNS: Afebrile. Vital signs are completely normal. GENERAL: She is alert and oriented, in no distress. As we talked for about 30 minutes, she showed no sign of uncomfortableness. HEENT: Normocephalic, atraumatic. Pupils equal and reactive. Sclerae anicteric. Oral mucosa moist. NECK: Supple. CHEST: Clear and equal bilaterally. HEART: Regular rate and rhythm. No murmurs, rubs or gallops. ABDOMEN: Soft. Mild tenderness on the right side to palpation. No rebound, no guarding. No hepatosplenomegaly. No masses felt. No hernias. No CVA tenderness. EXTREMITIES: No cyanosis, clubbing or edema. LABORATORY: Essentially completely normal. Her films showed a little bit of gas. She had been discharged with evidence of some right sided excessive stool, so she had been started on a bowel prep, but that has probably not been worked out yet. PLAN: She will be admitted for observation. I told her it could potentially be something early going on that is just not revealed yet. We did discuss the possibility that this pain could be somewhat psychosomatic and she did not disagree with that. We will continue to observe her, but I do not think there are any major surgical issues at this time. [facility][id number] [facility]
--- NOTE | 2019-03-12 21:20 | DS ---
SUPERVISING PHYSICIAN: Shaheen Luis M.D. DISCHARGE DIAGNOSIS: 1. Abdominal pain. 2. Fecal impaction. 3. History of chronic obstructive pulmonary disease with no acute exacerbation. 4. Mild metabolic acidosis on chemistry. 5. Hypertension. HISTORY OF PRESENT ILLNESS: This is a 68 year-old female who came in with abdominal pain. She was in the E. R. for the same complaints the day prior to her admission. It was mostly in the right upper quadrant along with epigastric pain. She also had some nausea and vomiting. The pain radiated to her back. She has had some chronic abdominal pain and it was deemed secondary to her paraesophageal hernia. It was repaired about 1 month ago. The pain had lessened after the surgery but it has worsened to the point that she actually has had to come to the E. R. twice. Her CAT scan in the E. R. on the day prior to admission showed nothing surgical but mid and distal small bowel distention with air-fluid levels. It continued into the cecum with marked distention of the ascending colon and proximal transverse colon. The remainder of the colon was normal. Her labs were unremarkable. She was told the prior day in the E. R. to drink mag citrate to try to clear out, however the pain was worse and she came back to the E. R. There were no complaints of fever or chills. She received pain control in the Emergency Room with Dilaudid. She was admitted for observation. HOSPITAL COURSE: She initially had some narcotics for pain control and that was weaned off until she was on her Tramadol. She had several doses of magnesium citrate as well as placed on MiraLAX twice daily. She also received some IV fluids. She has a quite extensive history of anxiety problems and her Xanax was restarted. She continued to have some colonic gas and she was continued with 2 doses of Milk of Magnesia. Dr. Ferguson, general surgeon, was consulted as he did her esophageal hernia repair approximately 1 month ago. He felt that her pain was somewhat psychosomatic and he agreed that she should be sent home on MiraLAX and to limit her narcotic use. She is tolerating her full liquid bland diet without any problems today. Her abdominal pain is mostly resolved and she will be discharged home today in stable condition. LABORATORY: CBC was basically unremarkable with her initial electrolytes showing sodium 135, potassium 3.8, chloride 99, carbon dioxide 19, anion gap 20.8 with BUN 13, creatinine 0.87. Electrolytes today were stable. Liver function tests were unremarkable. RADIOLOGY: Per the History of Present Illness with the exception of her abdominal x-ray from this morning which showed findings that may represent mild colonic ileus, otherwise no obvious acute findings.a DISCHARGE PLAN: The patient will be discharged home in stable condition. She is to increase her activity as tolerated and to limit any kind of narcotic use. She is to follow the diet recommended by Dr. Ferguson. Dr. Ferguson gave her a handout of his diet recommendations which are mostly no gluten. No processed foods. Limit foods to meats, vegetables and fruits. She has a followup appointment with Dr. Sesay on 03/15/19 at 2:15 PM. She is to have an abdominal x-ray prior to her appointment. In addition to her home medication she is also to continue with MiraLAX 17 grams daily. I have also given her a prescription for her Xanax. She is to return to the hospital or followup with Dr. Sesay for any problems or complications. DISCHARGE MEDICATIONS: 1. Protonix. 2. Sertraline. 3. Trazodone. 4. Sucralfate. 5. Acetaminophen. 6. Lisinopril. 7. Seroquel. 8. MiraLAX. 9. Xanax. #[id number] [facility]
== END 2019-03-11 13:05 | disposition home or self-care (01) ==
LOC: ER 12:38 → MS 15:31
PROVIDERS: ADMIT Nurse Practitioner; ATTEND Nurse Practitioner Acute Care
DX: K56.41 Fecal impaction (principal); R10.13 Epigastric pain; R11.2 Nausea with vomiting, unspecified; J44.9 Chronic obstructive pulmonary disease, unspecified; E87.2 Acidosis; I10 Essential (primary) hypertension; K21.9 Gastro-esophageal reflux disease without esophagitis; Z98.890 Other specified postprocedural states; Z79.899 Other long term (current) drug therapy; Z86.73 Personal history of transient ischemic attack (TIA), and cerebral infarction without residual deficits; Z87.891 Personal history of nicotine dependence; Z90.49 Acquired absence of other specified parts of digestive tract; Z90.710 Acquired absence of both cervix and uterus
CPT/HCPCS: 96361 ×2; 96374; 96375; 96376 ×3; J1170 ×5; J2405 ×4; J7120 ×3; 80053 ×2; 36415 ×2; 81001; 85025; 83690; 83735; 85730; 84484; 83605; 74019 ×2; 71045; 99285; 93005; G0378

== ENCOUNTER → 2019-03-13 | Outpatient (CLI) | payer MEDICARE, BC | LOC: BFHOS 17:42 | PROVIDERS: ATTEND Family Medicine | DX: J44.1 Chronic obstructive pulmonary disease with (acute) exacerbation (principal); N39.0 Urinary tract infection, site not specified; J69.0 Pneumonitis due to inhalation of food and vomit; F41.1 Generalized anxiety disorder; F11.20 Opioid dependence, uncomplicated; F32.9 Major depressive disorder, single episode, unspecified ==

== ENCOUNTER → 2019-03-15 | Outpatient (CLI) | payer MEDICARE, BC ==
--- NOTE | 2019-03-15 11:36 | RAD ---
EXAM DESCRIPTION: Abdomen Flat Upright CLINICAL HISTORY: Epigastric pain COMPARISON: 11 March 2019 TECHNIQUE: AP supine and upright views the abdomen. FINDINGS: Surgical clips are seen in the right upper quadrant. Occasional air-filled loops of small bowel are observed in appearance suggestive of a mild ileus. Possibility of partial bowel obstruction could be entertained was felt less likely no evidence of free air is seen. Occasional air-fluid levels are noted. Diffuse interstitial lung disease is observed in the lung bases. No urinary tract calcifications are observed. IMPRESSION: A minimally abnormal bowel gas pattern is observed and may be the result of a mild ileus. Possibility of a partial small bowel obstruction could be considered though is felt less likely. Electronically signed by: Leonard Maldonado MD 03/15/2019 11:34 AM CDT
--- NOTE | 2019-03-16 12:33 | US ---
EXAM DESCRIPTION: Carotid Duplex: ULTRASOUND. CLINICAL HISTORY: 68 years Female Syncope COMPARISON: None. TECHNIQUE: Transcutaneous scanning utilizing porras-scale and Doppler modes to evaluate the bilateral carotid systems and vertebral arteries. Percentage of diameter of stenosis or no stenosis recorded will be based upon NASCET criteria. FINDINGS: Peak systolic/end diastolic (CM-Sec) CCA Right 50/15 Left 55/22. ICA Right proximal 61/21, distal 66/21. Left proximal 49/16, mid 56/18. Vertebral Right 35/11 Left 36/8. ECA (PS Only) Right 39 left 44. ICA/CCA peak systolic ratio: Right 1.3 Left 1.0 ICA/CCA end diastolic ratio: Right 1.4 Left 0.8. Vertebral arteries: antegrade flow. Comments: Atherosclerotic calcification in the bilateral common carotid bifurcations and the proximal ICAs. Left mid bulb area stenosis 18% and diameter stenosis 19%. Right mid bulb area stenosis 14% and diameter stenosis 27%. Spectral broadening in the bilateral ICAs. IMPRESSION: 1. Doppler evaluation of the bilateral carotid systems and vertebral arteries shows no hemodynamically significant stenoses. 2. Moderate amount of plaque seen in the carotid arteries bilaterally. Bilateral vertebral arteries showed antegrade-cephalad flow. Electronically signed by: Michel Meza MD 03/16/2019 12:30 PM CDT
== END ==
LOC: RAD 09:54
PROVIDERS: ATTEND Nurse Practitioner Acute Care
DX: R55 Syncope and collapse (principal); I65.23 Occlusion and stenosis of bilateral carotid arteries; K59.00 Constipation, unspecified; R10.13 Epigastric pain

== ENCOUNTER → 2019-04-18 | Outpatient (CLI) | payer MEDICARE, BC | LOC: BFHOS 16:08 | PROVIDERS: ATTEND Family Medicine | DX: I10 Essential (primary) hypertension (principal) ==

== ENCOUNTER → 2019-05-09 | Outpatient (CLI) | payer MEDICARE, BC | LOC: BFHH 13:44 | PROVIDERS: ATTEND Family Medicine | DX: J44.9 Chronic obstructive pulmonary disease, unspecified (principal); M06.9 Rheumatoid arthritis, unspecified ==

== ENCOUNTER → 2019-07-08 | Outpatient (CLI) | payer MEDICARE, BC ==
--- NOTE | 2019-07-11 09:03 | RAD ---
EXAM DESCRIPTION: Neck,Soft Tissue CLINICAL HISTORY: 69 years Female, PAIN IN THROAT COMPARISON: None. FINDINGS: Two soft tissue views of the neck demonstrate modest degenerative change of the lower cervical spine with slight straightening particularly at the C5-6 level. The hypopharynx and laryngeal structures and proximal trachea are essentially normal. No enlargement of the epiglottis or retropharyngeal soft tissue mass or thickening noted. The airway appears adequate without foreign body. IMPRESSION: Normal soft tissue views of the neck. Electronically signed by: Kayode Hobbs MD 07/11/2019 9:01 AM [facility]
== END ==
LOC: RAD 15:02
PROVIDERS: ATTEND Nurse Practitioner
DX: R07.0 Pain in throat (principal)

== ENCOUNTER → 2019-07-26 | Outpatient (CLI) | payer MEDICARE, BC ==
--- NOTE | 2019-07-26 14:07 | CT ---
TECHNIQUE: Spiral CT examination of the neck performed. Multiplanar reformats performed. This exam was performed according to our departmental dose-optimization program, which includes automated exposure control, adjustment of the mA and/or kV according to patient size and/or use of iterative reconstruction technique. CLINICAL HISTORY PROVIDED: DYSPHAGIA COMPARISON: None available. FINDINGS: Nasal Cavity: Unremarkable. Paranasal Sinuses: Unremarkable. Nasopharynx: Unremarkable. Oropharynx: Unremarkable. Oral Cavity: Unremarkable. Hypopharynx: Unremarkable. Larynx: Unremarkable. Trachea: Unremarkable. Thyroid: Unremarkable. Parotid Glands: Unremarkable. Submandibular Glands: Unremarkable. Carotids / Internal Jugular Veins: Atherosclerotic plaque in the carotid bulbs. Skull Base: Unremarkable. Visible Brain and Orbits: Unremarkable. Lymph Nodes: Small nonspecific bilateral cervical lymph nodes. Soft Tissue Mass / Abscess: None present. Incidental Findings: None of significance. IMPRESSION: No suspicious mass or adenopathy identified. Electronically signed by: Chele Jackson MD 07/26/2019 2:05 PM [employer]ATIONAL [employer]ET[employer]IST
--- NOTE | 2019-07-26 14:24 | CT ---
EXAM DESCRIPTION: Chest w/o Contrast CLINICAL HISTORY: NIGHT SWEATS HYPERHIDROSIS COMPARISON: January 20, 2019 TECHNIQUE: Noncontrast transaxial CT images of the chest are obtained. This exam was performed according to our departmental dose-optimization program, which includes automated exposure control, adjustment of the mA and/or kV according to patient size and/or use of iterative reconstruction technique . FINDINGS: Heart is enlarged. Severe coronary artery calcifications. Scattered calcified plaque of the thoracic aorta. The lateral breast implants unchanged. No pleural or pericardial effusion. Visualized upper abdomen shows mild hiatal hernia. Surgical clips from cholecystectomy. Lungs are normally aerated. Peripheral fibrosis and associated traction bronchiectasis is stable. No focal consolidation or suspicious pulmonary nodule. Compression fracture deformities in the mid to lower thoracic spine are stable from previous. Osseous structures are osteopenic. Spondylitic changes of the spine are seen. IMPRESSION: Pulmonary parenchymal fibrosis and associated traction bronchiectasis is stable from previous with no acute appearing infiltrate or consolidation seen. Severe calcific coronary artery disease is unchanged. Electronically signed by: Abhilash Dudley MD 07/26/2019 2:23 PM [employer]
== END ==
LOC: LAB.O 11:26
PROVIDERS: ATTEND Family Medicine
DX: R13.10 Dysphagia, unspecified (principal); R61 Generalized hyperhidrosis; J84.10 Pulmonary fibrosis, unspecified; J47.9 Bronchiectasis, uncomplicated; I25.10 Atherosclerotic heart disease of native coronary artery without angina pectoris; I10 Essential (primary) hypertension; R53.83 Other fatigue

== ENCOUNTER → 2020-06-21 | Outpatient (CLI) | payer MEDICARE, BC ==
--- NOTE | 2020-06-21 13:26 | RAD ---
EXAM DESCRIPTION: Chest,2 Views x-ray CLINICAL HISTORY: 70 years Female, COUGH COMPARISON: 03/09/2019 IMPRESSION: Cardiomegaly without failure. Atherosclerosis in the thoracic aorta. The lungs are hyperexpanded with changes of severe emphysema. Coarsened interstitial markings are again demonstrated. There is also increased patchy opacities in the periphery of the right upper lung and perihilar regions. The findings are concerning for a superimposed atypical infectious/inflammatory process. Correlate for viral or bacterial etiologies. No pleural effusion or pneumothorax. Chronic appearing compression fractures at 2 midthoracic vertebral bodies again demonstrated. Electronically signed by: Daniel Weiss MD 06/21/2020 1:24 PM [facility]
== END ==
LOC: YCFC.O 12:56
PROVIDERS: ATTEND Family Medicine
DX: R91.8 Other nonspecific abnormal finding of lung field (principal); R05 Cough; I51.7 Cardiomegaly; I70.0 Atherosclerosis of aorta; J43.9 Emphysema, unspecified; S22.000A Wedge compression fracture of unspecified thoracic vertebra, initial encounter for closed fracture; Z20.828 Contact with and (suspected) exposure to other viral communicable diseases

== ENCOUNTER → 2020-08-15 | Outpatient (CLI) | payer MEDICARE, BC, OTHER | LOC: GMALP 11:12 | PROVIDERS: ATTEND Family Medicine | DX: F41.1 Generalized anxiety disorder (principal); R61 Generalized hyperhidrosis ==